=== PATIENT | female | born 1995 | race Caucasian/White ===

== ENCOUNTER 2020-07-15 23:24 | Emergency (ER) | payer OTHER, SELFPAY ==
--- NOTE | 2020-07-16 00:15 | ED.SKABFB ---
HPI - Skin/Abscess/Foreign Bdy General Chief complaint: Skin/Abscess/Foreign Body Stated complaint: VAGINAL PROBLEMS Time Seen by Provider: 07/16/20 00:15 Source: patient Mode of arrival: ambulatory Limitations: no limitations History of Present Illness HPI narrative: blister in the pubic area for 1 day, otherwise declined any fever or chills. patient recently shaved. Related Data Allergies Allergy/AdvReac Type Severity Reaction Status Date / Time No Known Allergies Allergy Verified 07/16/20 00:27 [No Known Allergies*] Review of Systems Review of Systems: all other systems are reviewed and are negative Constitutional: Reports as per HPI and Reports no additional constitutional complaints Eyes: Reports as per HPI and Reports no additional eye complaints Reports system reviewed and no additional complaints, except as documented Cardiovascular: Reports as per HPI and Reports no additional cardiovascular complaints Respiratory: Reports as per HPI and Reports no additional respiratory complaints Gastrointestinal: Reports as per HPI and Reports no additional gastrointestinal complaints Genitourinary: Reports no additional female genitourinary complaints Musculoskeletal: Reports no additional musculoskeletal complaints Skin/Breast: Reports system reviewed and no additional complaints, except as docu Psychiatric: Reports no additional psychiatric complaints Endocrine: Reports no additional endocrine complaints Hematologic/Lymphatic: Reports no additional hematologic/lymphatic complaints Allergic/Immunologic: Reports no additional allergic/immunologic complaints Reports system reviewed and no additional complaints, except as documented and Reports Abnormal speech present [facility] Past Medical History Medical History (Updated 07/16/20 @ 00:35 by Shy Magana MD) No known health problems Social History Social History Alcohol intake: never Smoked in Last 30 Days: No Use of substances other than those prescribed or required for medical reasons: No Physical Exam Vital Signs: Appearance: Alert. Oriented X3. No acute distress. Head: Normal external exam. Normocephalic. Atraumatic. No De Los Santos signs noted. No raccoon eyes noted Eyes: PERRLA. EOMI. Conjunctiva and sclera normal. Eyelids normal. ENT: EAC normal. TM's Normal. Pharynx normal. Uvula midline. Moist mucous membranes. No trismus noted. No drooling noted. No muffled voice noted. Neck: Normal inspection. Neck supple. FROM. No adenopathy. Thyroid Normal. No meningeal signs. No neck mass noted. CVS: Normal heart rate and rhythm. Heart sound normal. No murmurs noted. Pulses normal throughout. Respiratory: No respiratory distress. Painless inspiration. Breath sounds normal. No wheezes/rales/rhonchi noted. Chest nontender. No accessory muscle usage noted or decreased air movement noted. Abdomen: Soft and nontender. small 2 x 1 cm area of fluctuation surrounded by erythematous margin, tender to touch. Bowel sounds normal in all 4 quadrants. No distention noted. No organomegaly noted. No visible injury noted. Back: No CVA tenderness. Full range of motion noted. Skin: Skin warm and dry. Normal skin color. Normal skin turgor. No rashes/lesions/lacerations noted. Extremities: No lower extremity edema. Extremities exhibit normal range of motion. Extremities nontender. Neuro: Oriented X 3. No motor deficit. No sensory deficit. Reflexes normal. Course Course Course Narrative: Lower abdominal abscesses, will I and D. Procedures Abscess I/D Site: other ( Pubic) Local Anesthetic: lidocaine 1% Amount of anesthesia used (mL): 5 Amount of fluid expressed (mL): 5 Sent for culture/gram staining?: No Irrigation: No Packing used?: none MDM - Skin/Abscess/Foreign Bdy MDM Narrative Medical decision making narrative: assessment and plan. 24-year-old female who recently shaved her pubic hair, have an abscess to the pubic area, abscess was I &D. will discharge and follow with PCP. Discharge Plan Discharge Clinical Impression: Abscess of skin or subcutaneous tissue Qualifiers: Site of cutaneous abscess: trunk Patient Disposition: Home, Self-Care Instructions: Abscess (ED) Referrals: Physician,None [Primary Care Provider] - 2 days
[2020-07-16 00:22] VITALS: BP 110/39; PULSE 113; RESP 18; TEMP 37.2; O2SAT 99; BMI 45.7
[2020-07-16] MEDS: Lidocaine HCl 1 % 20 ML VIAL 5 ML SUBCUT (00:36)
[2020-07-16 00:42] VITALS: BP 129/46; PULSE 108; RESP 18; TEMP 36.9; O2SAT 99
== END 2020-07-16 01:15 | disposition home or self-care (01) ==
LOC: HO.ED 07-16 00:54
PROVIDERS: Emergency Provider Emergency Medicine
DX: L02.214 Cutaneous abscess of groin (principal)
CPT/HCPCS: 10060; 99284

== ENCOUNTER 2020-12-04 14:42 | Emergency (ER) | payer OTHER, SELFPAY ==
--- NOTE | ~2020-12-04 | US_ITS ---
EXAMINATION: US ABDOMEN LIMITED CLINICAL INFORMATION: Right upper quadrant pain. COMPARISON: None TECHNIQUE: Real-time imaging of the right upper quadrant abdominal viscera. FINDINGS: PANCREAS: Normal. LIVER: The liver is mildly enlarged, measuring up to 22 cm in cranial caudal dimension. The liver contour is normal. There is diffuse increased liver parenchymal echogenicity, consistent with hepatic steatosis. No focal hepatic lesion. There is no intrahepatic biliary duct dilatation seen. GALLBLADDER: Normal. The gallbladder is physiologically distended without evidence of stones, sludge, polyps, wall thickening or pericholecystic fluid. COMMON BILE DUCT: Mildly enlarged, measuring 0.8 cm in diameter. No intraluminal filling defect or stone is visualized. RIGHT KIDNEY: Normal. No hydronephrosis. No renal calculi or focal parenchymal lesions. The kidney measures 12.80 cm in maximum dimension. FREE FLUID: None. US/US abdomen limited IMPRESSION: Mild hepatomegaly and hepatic steatosis. Normal appearance of the gallbladder. Mildly enlarged common bile duct measuring up to 0.8 cm in diameter. No intraluminal filling defect or stone is visualized.
--- NOTE | 2020-12-04 15:14 | ED.ABDPAIN ---
HPI - Abdominal Pain General Chief Complaint: Abdominal Pain Stated Complaint: abd pain Time Seen by Provider: 12/04/20 15:13 History of Present Illness HPI narrative: Patient complains of nausea vomiting diarrhea and stomach pain for 24 hours, pain is in the upper stomach and it is worse after eating, and she has been vomiting after eating or drinking anything for the last day, and she has also had watery diarrhea, not dizzy not weak no blood in stool or vomitus no dysuria Related Data Previous Rx's Medication Instructions Recorded famotidine [Pepcid] 20 mg PO BID PRN #14 tab 12/04/20 loperamide [Imodium A-D] 2 mg PO Q4H PRN #14 tab 12/04/20 ondansetron HCl [Zofran] 4 mg PO Q6H PRN #10 tab 12/04/20 Allergies Allergy/AdvReac Type Severity Reaction Status Date / Time No Known Allergies Allergy Verified 12/04/20 16:05 [No Known Allergies*] Review of Systems Review of Systems Positive for abdominal pain nausea vomiting and diarrhea Negatives no dizziness no weakness no confusion no fever no chills no headache no sore throat no chest pain no shortness of breath no cough no skin rash no numbness no weakness no changes to bowel or bladder no dysuria no frequency no burning Yes all other systems are reviewed and are negative Physical Exam Vital Signs: Vital Signs: Last Vital Signs Temp 98.3 F 12/04/20 16:06 Pulse 92 12/04/20 16:06 Resp 18 12/04/20 16:06 BP 104/59 L 12/04/20 16:06 Pulse Ox 100 12/04/20 16:06 Body Mass Index 53.0 General appearance is no acute distress cooperative relaxed and O x3 The head is normocephalic atraumatic pupils are anicteric, no pallor The pharynx is well hydrated and normal in appearance The neck is supple The chest is clear to auscultation bilaterally full symmetric equal breath sounds The heart rate and rhythm regular, no murmur abdomen is tender in right upper quadrant and worse in the epigastric area with no rebound no guarding no other tenderness no tenderness in the right lower abdomen Extremities full range of motion x4 without edema or swelling Skin no rash Neuro no focal deficit Course Course Course Narrative: Patient test with negative Ultrasound did not show any acute cholelithiasis or gallstone LFTs were mildly elevated it ALT ALP total protein and albumin, bilirubin and lipase were normal Repeat abdominal exam showed only some residual epigastric tenderness without rebound or guarding no right upper quadrant tenderness no rebound no guarding, patient was now tolerating p.o. after the Zofran and pain was improved with the Pepcid and patient was discharged feeling very improved Differential includes gallstones, cholelithiasis, reflux, gastroenteritis, appendicitis MDM - Abdominal Pain Lab Data Result diagrams: 12/04/20 16:17 12/04/20 18:39 Labs: Lab Results 12/04/20 12/04/20 12/04/20 Range/Units 16:17 16:17 16:17 WBC 11.3 H (4.8-10.8) X10*3/uL RBC 5.27 (4.20-5.50) X10*6/uL Hgb 13.5 (12.0-16.0) g/dl Hct 43.5 (37-47) % MCV 82.5 (80-98) fL MCH 25.6 L (27.0-33.0) pg MCHC 31.0 (31.0-35.0) g/dl RDW 14.3 (11.0-16.0) % Plt Count 318 (160-400) X10*3/uL MPV 10.0 (9.4-12.3) fL Immature Gran % (Auto) 0.5 H (0.0-0.4) % Neut % (Auto) 65.7 (45-73) % Lymph % (Auto) 24.8 (20-40) % Tyrrell % (Auto) 6.4 (2-11) % Eos % (Auto) 2.4 (0-4) % Baso % (Auto) 0.2 (0-2) % Lymph # (Auto) 2.8 (1.2-4.9) X10*3/uL Tyrrell # (Auto) 0.7 (0.1-1.2) X10*3/uL Eos # (Auto) 0.3 (0.0-0.4) X10*3/uL Baso # (Auto) 0.0 (0.0-0.2) X10*3/uL Abs Immat Gran (auto) 0.06 H (0.00-0.03) X10*3/uL Absolute Neuts (auto) 7.5 (2.0-8.3) X10*3/uL Absolute Nucleated RBC 0.000 (0.0-0.012) X10*3/uL Nucleated RBC % (auto) 0.0 (0.0-0.2) /100WBC Sodium (135-145) mmol/L Potassium (3.3-5.1) mmol/L Chloride (96-108) mmol/L Carbon Dioxide (22-29) mmol/L Anion Gap (12-20) BUN (9-16) mg/dL Creatinine (0.5-1.4) mg/dL Estim Creat Clear Calc Estimated GFR Random Glucose (60-115) mg/dL Calcium (8.4-10.2) mg/dL Total Bilirubin (0.0-1.0) mg/dL Direct Bilirubin (0.0-0.5) mg/dL AST (5-31) U/L ALT (0-31) U/L Alkaline Phosphatase (39-117) U/L Total Protein (6.5-8.0) g/dL Albumin (3.5-5.0) g/dL Lipase (8-78) U/L Urine Color YELLOW Urine Appearance CLEAR Urine pH 5.5 (5.0-8.0) Ur Specific Franklin >= 1.030 H (1.005-1.025) Urine Protein NEG (NEG-TRACE) MG/DL Urine Glucose (UA) NEG (NEG) MG/DL Urine Ketones NEG (NEG) MG/DL Urine Blood 2+ H (NEG) Urine Nitrite NEG (NEG) Ur Leukocyte Esterase NEG (NEG) Urine RBC 5-9 H (0) /HPF Urine WBC 5-9 H (0-4) /HPF Ur Squamous Epith Cells 2+ /LPF Urine Bacteria 1+ /LPF Urine Test NEGATIVE (NEGATIVE) 12/04/20 Range/Units 18:39 WBC (4.8-10.8) X10*3/uL RBC (4.20-5.50) X10*6/uL Hgb (12.0-16.0) g/dl Hct (37-47) % MCV (80-98) fL MCH (27.0-33.0) pg MCHC (31.0-35.0) g/dl RDW (11.0-16.0) % Plt Count (160-400) X10*3/uL MPV (9.4-12.3) fL Immature Gran % (Auto) (0.0-0.4) % Neut % (Auto) (45-73) % Lymph % (Auto) (20-40) % Tyrrell % (Auto) (2-11) % Eos % (Auto) (0-4) % Baso % (Auto) (0-2) % Lymph # (Auto) (1.2-4.9) X10*3/uL Tyrrell # (Auto) (0.1-1.2) X10*3/uL Eos # (Auto) (0.0-0.4) X10*3/uL Baso # (Auto) (0.0-0.2) X10*3/uL Abs Immat Gran (auto) (0.00-0.03) X10*3/uL Absolute Neuts (auto) (2.0-8.3) X10*3/uL Absolute Nucleated RBC (0.0-0.012) X10*3/uL Nucleated RBC % (auto) (0.0-0.2) /100WBC Sodium 139 (135-145) mmol/L Potassium 4.0 (3.3-5.1) mmol/L Chloride 106 (96-108) mmol/L Carbon Dioxide 21 L (22-29) mmol/L Anion Gap 16 (12-20) BUN 10 (9-16) mg/dL Creatinine 0.67 (0.5-1.4) mg/dL Estim Creat Clear Calc 171.9 Estimated GFR > 60 Random Glucose 74 (60-115) mg/dL Calcium 9.9 (8.4-10.2) mg/dL Total Bilirubin 0.9 (0.0-1.0) mg/dL Direct Bilirubin 0.3 (0.0-0.5) mg/dL AST 25 (5-31) U/L ALT 40 H (0-31) U/L Alkaline Phosphatase 124 H (39-117) U/L Total Protein 9.1 H (6.5-8.0) g/dL Albumin 5.1 H (3.5-5.0) g/dL Lipase 15 (8-78) U/L Urine Color Urine Appearance Urine pH (5.0-8.0) Ur Specific Franklin (1.005-1.025) Urine Protein (NEG-TRACE) MG/DL Urine Glucose (UA) (NEG) MG/DL Urine Ketones (NEG) MG/DL Urine Blood (NEG) Urine Nitrite (NEG) Ur Leukocyte Esterase (NEG) Urine RBC (0) /HPF Urine WBC (0-4) /HPF Ur Squamous Epith Cells /LPF Urine Bacteria /LPF Urine Test (NEGATIVE) Discharge Plan Discharge Clinical Impression: Gastroenteritis, Elevated liver function tests Patient Disposition: Home, Self-Care Additional Instructions: We did not find any emergent or dangerous condition today Your liver function tests were mildly elevated so should be repeated after a couple of weeks and you should follow with primary care doctor for repeat liver function tests We are treating vomiting with Zofran and diarrhea with Imodium, drink plenty of fluids We started Pepcid as needed for burning stomach pain you can also take Maalox, they are both acid reducing agents Return anything for change or worsening abdominal pain, fever, uncontrolled vomiting, dehydration dizziness weakness any worse condition or any concerns Prescriptions: New ondansetron HCl [Zofran] 4 mg tablet 4 mg PO Q6H PRN (Reason: nausea and vomiting) Qty: 10 RF: 0 famotidine [Pepcid] 20 mg tablet 20 mg PO BID PRN (Reason: Stomach acid pain) Qty: 14 RF: 0 loperamide [Imodium A-D] 2 mg tablet 2 mg PO Q4H PRN (Reason: loose stool) Qty: 14 RF: 0 Stand Alone Forms: Work/School Release Interventions: ED Discharge Assessment Last Done: 12/04/20 20:36 Discharge Date/Time: 12/04/20 20:38 [facility] Past Medical History Source: nursing notes reviewed Medical History (Updated 12/05/20 @ 00:00 by Background Dadeborah) No known health problems Obese Social History Social History Alcohol intake: never Smoking Status: Never smoker Use of substances other than those prescribed or required for medical reasons: No Advance Directives: No Advance Directives Information Provided: Yes
[2020-12-04 16:06] VITALS: BP 104/59; PULSE 92; RESP 18; TEMP 36.8; O2SAT 100; BMI 53.0
[2020-12-04] MEDS: ondansetron HCL 4 MG/2 ML VIAL IVPUSH (16:27)
[2020-12-04] MEDS: 0.9 % Sodium Chloride 1,000 ML 999 ML IVCONT (16:27)
[2020-12-04 16:28] LABS: MANUAL DIFF FLAG NO
[2020-12-04 16:32] LABS: Basophils Percent Auto 0.2 % (0-2); Eosinophils Absolute Auto 0.3 X10*3/uL (0.0-0.4); Eosinophils Percent Auto 2.4 % (0-4); Hematocrit 43.5 % (37-47); Hemoglobin 13.5 g/dl (12.0-16.0); Imm Gran Abs Auto 0.06 X10*3/uL (0.00-0.03); Imm Gran Pct Auto 0.5 % (0.0-0.4); Lymphocytes Absolute Auto 2.8 X10*3/uL (1.2-4.9); Lymphocytes Percent Auto 24.8 % (20-40); Mean Corpuscular Hemoglobin 25.6 pg (27.0-33.0); Mean Corpuscular Volume 82.5 fL (80-98); Monocytes Absolute Auto 0.7 X10*3/uL (0.1-1.2); Monocytes Percent Auto 6.4 % (2-11); Neutrophils Absolute Auto 7.5 X10*3/uL (2.0-8.3); Neutrophils Percent Auto 65.7 % (45-73); Platelet Count 318 X10*3/uL (160-400); Red Blood Count 5.27 X10*6/uL (4.20-5.50); Red Cell Distribution Width 14.3 % (11.0-16.0); White Blood Count 11.3 X10*3/uL (4.8-10.8)
[2020-12-04 16:41] LABS: Glucose Urine UA NEG (NEG); Leukocyte Esterase Urine NEG (NEG); Nitrite Urine NEG (NEG); PH 5.5 (5.0-8.0); Specific Gravity - Urine >= 1.030 (1.005-1.025); Urine Blood 2+ (NEG); Urine Ketones NEG (NEG); Urine Protein NEG (NEG-TRACE)
[2020-12-04 16:45] LABS: Appearance Urine CLEAR; Color Urine YELLOW
[2020-12-04 16:47] LABS: UPreg QC Valid YES; Urine Pregnancy NEGATIVE (NEGATIVE)
[2020-12-04 17:18] LABS: UACC CULT YES
[2020-12-04 17:19] LABS: Bacteria Urine 1+ /LPF; Squamous Epithelial Cell Urine 2+ /LPF
[2020-12-04 19:39] LABS: Alanine Aminotransferase 40 U/L (0-31); Albumin Level 5.1 g/dL (3.5-5.0); Alkaline Phosphatase 124 U/L (39-117); Anion Gap 16 (12-20); Aspartate Amino Transferase 25 U/L (5-31); Bilirubin Direct 0.3 mg/dL (0.0-0.5); Bilirubin Total 0.9 mg/dL (0.0-1.0); Blood Urea Nitrogen 10 mg/dL (9-16); Calcium 9.9 mg/dL (8.4-10.2); Carbon Dioxide 21 mmol/L (22-29); Chloride 106 mmol/L (96-108); Creatinine Clr Calc Pharmacy 171.9; Estimated Glomerular Filt Rate > 60; Glucose Random 74 mg/dL (60-115); Lipase 15 U/L (8-78); Sodium 139 mmol/L (135-145); Total Protein 9.1 g/dL (6.5-8.0)
== END 2020-12-04 20:38 | disposition home or self-care (01) ==
PROVIDERS: Physician Assistant Medical; Emergency Provider Internal Medicine
DX: K52.9 Noninfective gastroenteritis and colitis, unspecified (principal); R79.89 Other specified abnormal findings of blood chemistry
CPT/HCPCS: 36415; 76705; 80048; 80076; 81001; 81025; 83690; 85025; 87086; 96361; 96374; 99284; J2405

== ENCOUNTER 2021-02-20 14:54 | Emergency (ER) | payer OTHER, SELFPAY ==
[2021-02-20 15:43] VITALS: BP 110/59; PULSE 89; RESP 18; TEMP 36.8; O2SAT 99; BMI 42.1
--- NOTE | 2021-02-20 16:33 | ED.EXTPRO ---
HPI - Extremity Problem General Chief complaint: Extremity Injury, Upper Stated complaint: L ARM PAIN Time Seen by Provider: 02/20/21 16:15 Source: patient Mode of arrival: ambulatory Limitations: no limitations History of Present Illness MD Complaint: extremity pain and joint paint Onset (ago): day(s) (2) Pain Consistency: constant Location: left and upper extremity (wrist) Quality: aching and constant Radiation: proximal Relieving factors: nothing Exacerbating factors: range of motion and palpation Associated symptoms: denies other symptoms Context: other (repeated movements at work and heavy lifting, no trauma) Related Data Previous Rx's Medication Instructions Recorded famotidine [Pepcid] 20 mg PO BID PRN #14 tab 12/04/20 loperamide [Imodium A-D] 2 mg PO Q4H PRN #14 tab 12/04/20 ondansetron HCl [Zofran] 4 mg PO Q6H PRN #10 tab 12/04/20 cyclobenzaprine 10 mg PO TID PRN #14 tab 02/20/21 ibuprofen 600 mg PO Q6H PRN #30 tab 02/20/21 prednisone 40 mg PO DAILY 5 Days #10 tab 02/20/21 Allergies Allergy/AdvReac Type Severity Reaction Status Date / Time No Known Allergies Allergy Verified 02/20/21 15:43 [No Known Allergies*] Review of Systems Review of Systems: Constitutional : No Fever, No Chills ENT/Mouth : No Ear Pain, No Hoarseness Eyes: No Eye Pain, No Swelling Cardiovascular : No Chest Pain, No SOB Respiratory : No Cough, No Dyspnea Gastrointestinal : No Nausea, No Vomiting, No Diarrhea Genitourinary : No Dysuria, No Hematuria Musculoskeletal : positive joint pain, No Myalgias, No Joint Swelling Skin : No Skin lacerations, No rash Neuro : No Weakness, No Numbness PMFSH Past Medical History Attestation statement: The following information was validated with the patient. Medical History No known health problems Obese Social History Social History Alcohol intake: never Advance Directives: No Advance Directives Information Provided: No Patient : No Physical Exam Vital Signs: Vital Signs: Last Vital Signs Temp 98.2 F 02/20/21 15:43 Pulse 89 02/20/21 15:43 Resp 18 02/20/21 15:43 BP 110/59 L 02/20/21 15:43 Pulse Ox 99 02/20/21 15:43 Body Mass Index 42.1 Appearance: Alert. Oriented X3. No acute distress. Eyes: Pupils equal, round and reactive to light. ENT: Pharynx normal. Neck: Normal inspection. Neck supple. CVS: Normal heart rate and rhythm. Pulses normal. Respiratory: No respiratory distress. Breath sounds normal. Abdomen: Soft and nontender. Skin: Skin warm and dry. Normal skin color. Normal skin turgor. Extremities: No lower extremity edema. No calf ttp L wrist NV intact + phalen's pos tinels test - slight swelling noted over carpal tunnel Neuro: Oriented X 3. No motor deficit. No sensory deficit. Procedures Orthopedic Splinting/Casting Injury #1: Side: left Upper Extremity Injury Location: wrist Upper Extremity Immobilizer: wrist splint Additional Comments: post NV intact MDM - Extremity (Nontraumatic) MDM Narrative Medical decision making narrative: 25 yo female otherwise healthy here with L wrist pain for 2 days has repetitive movements at work - exam NV intact, no trauma, suspect carpal tunnel at this time, anti inflammatories and wrist splint, light duty at work, follow up with PCP Discharge Plan Discharge Clinical Impression: Acute carpal tunnel syndrome Qualifiers: Laterality: left Qualified Code(s): G56.02 - Carpal tunnel syndrome, left upper limb Patient Disposition: Home, Self-Care Instructions: Wrist Injury (ED) Additional Instructions: return to ED for any worsening symptoms or concerns wear splint x 1 week for comfort, wear at night as well TAKE MEDICATIONS WITH FOOD Prescriptions: New cyclobenzaprine 10 mg tablet 10 mg PO TID PRN (Reason: muscle spasm) Qty: 14 RF: 0 prednisone 20 mg tablet 40 mg PO DAILY 5 Days Qty: 10 RF: 0 ibuprofen 600 mg tablet 600 mg PO Q6H PRN (Reason: pain) Qty: 30 RF: 0 No Action ondansetron HCl [Zofran] 4 mg tablet 4 mg PO Q6H PRN (Reason: nausea and vomiting) Qty: 10 RF: 0 famotidine [Pepcid] 20 mg tablet 20 mg PO BID PRN (Reason: Stomach acid pain) Qty: 14 RF: 0 loperamide [Imodium A-D] 2 mg tablet 2 mg PO Q4H PRN (Reason: loose stool) Qty: 14 RF: 0 Referrals: Physician,Unknown [Primary Care Provider] - 5 days (PCP if not better in 5 days) Stand Alone Forms: Work/School Release
[2021-02-20] MEDS: Ketorolac Tromethamine 60 MG/2 ML VIAL IM (17:07)
== END 2021-02-20 17:08 | disposition home or self-care (01) ==
PROVIDERS: Emergency Provider Emergency Medicine
DX: G56.02 Carpal tunnel syndrome, left upper limb (principal)
CPT/HCPCS: 96372; 99283; 99284; J1885

== ENCOUNTER 2021-05-19 01:15 | Emergency (ER) | payer OTHER, SELFPAY ==
--- NOTE | ~2021-05-19 | XR_ITS ---
EXAMINATION: XR HAND, RIGHT CLINICAL INFORMATION: Fall COMPARISON: None TECHNIQUE: PA, lateral, and oblique views of the right hand. FINDINGS: Osseous alignment is anatomic. There is suggestion of a nondisplaced oblique fracture at the neck of the fifth metacarpal. No additional acute osseous findings are seen. XR/XR hand RT min 3V IMPRESSION: Suggestion of a nondisplaced fracture at the neck of the fifth metacarpal; clinical correlation recommended at this site.
[2021-05-19 01:56] VITALS: BP 138/60; PULSE 92; RESP 16; TEMP 36.7; O2SAT 99; BMI 43.9
--- NOTE | 2021-05-19 02:39 | ED.EXTPRO ---
HPI - Extremity Problem General Chief complaint: Extremity Injury, Upper Stated complaint: swollen right hand Time Seen by Provider: 05/19/21 02:38 Source: patient Mode of arrival: ambulatory History of Present Illness HPI Narrative: This is a 25-year-old female, left-hand dominant, who presents with right hand swelling after she tripped going up stairs and caught herself with her right hand and initially did not notice that she had any pain but then progressively it became more painful over the pinky finger. Related Data Previous Rx's Medication Instructions Recorded famotidine 20 mg tablet (Pepcid) 20 mg PO BID PRN #14 tab 12/04/20 loperamide 2 mg tablet (Imodium 2 mg PO Q4H PRN #14 tab 12/04/20 A-D) ondansetron HCl 4 mg tablet 4 mg PO Q6H PRN #10 tab 12/04/20 (Zofran) cyclobenzaprine 10 mg tablet 10 mg PO TID PRN #14 tab 02/20/21 ibuprofen 600 mg tablet 600 mg PO Q6H PRN #30 tab 02/20/21 prednisone 20 mg tablet 40 mg PO DAILY 5 Days #10 tab 02/20/21 Allergies Allergy/AdvReac Type Severity Reaction Status Date / Time No Known Allergies Allergy Verified 02/20/21 15:43 [No Known Allergies*] Review of Systems Review of Systems: Pertinent positives and negatives as stated in HPI 10 point review of systems is otherwise negative. PMFSH Past Medical History Source: nursing notes reviewed Medical History No known health problems Obese Social History Social History Alcohol intake: never Patient Tobacco Use Status: Never used Tobacco Use of substances other than those prescribed or required for medical reasons: No Advance Directives: No Advance Directives Information Provided: No Physical Exam Vital Signs: Vital Signs: Last Vital Signs Temp 98.1 F 05/19/21 01:56 Pulse 92 05/19/21 01:56 Resp 16 05/19/21 01:56 BP 138/60 05/19/21 01:56 Pulse Ox 99 05/19/21 01:56 Body Mass Index 43.9 VITAL SIGNS: Reviewed. GENERAL: Well developed, well nourished, in no acute distress. HEAD: Normocephalic/atraumatic EYES: PERRLA, EOMI LUNGS: Normal breath sounds. SpO2<99> CARDIOVASCULAR: Regular rate and rhythm without noted murmurs ABDOMEN: Soft, non-tender, non-distended with bowel sounds RIGHT HAND: Noted swelling over 5th MCP, capillary refill is less than 3 seconds, sensation is intact, hand is warm NEUROLOGIC: Alert and oriented x 4. Course Course Course Narrative: 25-year-old female with history and clinical presentation suggestive of possible dislocation versus fracture and on review of imaging there is a noted ?nondisplaced fracture at the neck of the 5th metacarpal . Patient was placed in an ulnar gutter and given a referral to see Orthopedics. Discharge Plan Discharge Clinical Impression: Fracture of fifth metacarpal bone Patient Disposition: Home, Self-Care Instructions: Hand Fracture (ED), Splint Care (ED) Additional Instructions: 1. Recommend using [id number] Tylenol/ibuprofen as needed for pain control. 2. Please call the orthopedic office in the morning, the referral was provided to below. Return to the ER for acute worsening of symptoms. Prescriptions: No Action cyclobenzaprine 10 mg tablet 10 mg PO TID PRN (Reason: muscle spasm) Qty: 14 RF: 0 prednisone 20 mg tablet 40 mg PO DAILY 5 Days Qty: 10 RF: 0 ibuprofen 600 mg tablet 600 mg PO Q6H PRN (Reason: pain) Qty: 30 RF: 0 ondansetron HCl [Zofran] 4 mg tablet 4 mg PO Q6H PRN (Reason: nausea and vomiting) Qty: 10 RF: 0 famotidine [Pepcid] 20 mg tablet 20 mg PO BID PRN (Reason: Stomach acid pain) Qty: 14 RF: 0 loperamide [Imodium A-D] 2 mg tablet 2 mg PO Q4H PRN (Reason: loose stool) Qty: 14 RF: 0 Referrals: Jovanna Everett MD [Physician] - 2 days (Evaluation of 25-year-old female, left-hand dominant, with mechanical fall and subsequent nondisplaced fracture at the neck of the right 5th metacarpal and placed in an ulnar gutter.)
== END 2021-05-19 03:28 | disposition home or self-care (01) ==
PROVIDERS: Emergency Provider Student in an Organized Health Care Education/Training Program
DX: S62.366A Nondisplaced fracture of neck of fifth metacarpal bone, right hand, initial encounter for closed fracture (principal); W17.89XA Other fall from one level to another, initial encounter; Y93.89 Activity, other specified; Y92.038 Other place in apartment as the place of occurrence of the external cause; Y99.9 Unspecified external cause status
CPT/HCPCS: 29125; 73130; 99284

== ENCOUNTER → 2021-05-24 14:10 | Outpatient (BNVA) | payer OTHER, SELFPAY | PROVIDERS: Visit Provider Physician Assistant | DX: S62.366A Nondisplaced fracture of neck of fifth metacarpal bone, right hand, initial encounter for closed fracture (principal); W01.0XXA Fall on same level from slipping, tripping and stumbling without subsequent striking against object, initial encounter; Y93.01 Activity, walking, marching and hiking; Y92.038 Other place in apartment as the place of occurrence of the external cause; Y99.8 Other external cause status | CPT/HCPCS: 99202 ==

== ENCOUNTER 2021-06-21 13:03 | Outpatient (REF) | payer OTHER, SELFPAY ==
--- NOTE | ~2021-06-21 | XR_ITS ---
EXAMINATION: XR HAND, RIGHT CLINICAL INFORMATION: Pain right hand COMPARISON: None TECHNIQUE: PA, lateral, and oblique views of the right hand. FINDINGS: There is a nondisplaced oblique fracture distal fifth metacarpal without any significant soft tissue swelling. Rest of the fifth digit and the right hand appears unremarkable. XR/XR hand RT min 3V IMPRESSION: Nondisplaced oblique fracture distal fifth metatarsal with minimal soft tissue swelling.
== END 2021-06-21 13:04 | disposition home or self-care (01) ==
LOC: HO.HOSX 13:03
PROVIDERS: Visit Provider Physician Assistant
DX: S62.336D Displaced fracture of neck of fifth metacarpal bone, right hand, subsequent encounter for fracture with routine healing (principal)
CPT/HCPCS: 73130; 99212

== ENCOUNTER 2021-07-19 07:20 | Outpatient (REF) | payer OTHER, SELFPAY ==
--- NOTE | ~2021-07-19 | XR_ITS ---
EXAMINATION: XR HAND, RIGHT CLINICAL INFORMATION: Subtle nondisplaced hairline fracture neck fifth metacarpal. Pain. Follow-up. COMPARISON: Radiographs right knee 06/21/2021, 05/19/2021 TECHNIQUE: AP view right hand and 3 views right fifth digit are obtained for a total of 4 views. FINDINGS: There is subtle smooth callus formation at medial neck fifth metacarpal on the AP small field of view image. There is no angulation or displacement. Fracture line is barely perceptible. There is no new fracture or destructive process. No dislocation. XR/XR hand RT min 3V IMPRESSION: Healing nondisplaced hairline fracture neck fifth metacarpal.
== END 2021-07-19 07:21 | disposition home or self-care (01) ==
LOC: HO.HOSX 07:20
PROVIDERS: Visit Provider Physician Assistant
DX: S62.308D Unspecified fracture of other metacarpal bone, subsequent encounter for fracture with routine healing (principal)
CPT/HCPCS: 73130; 99212

== ENCOUNTER 2021-10-04 11:14 | Emergency (ER) | payer OTHER, SELFPAY ==
[2021-10-04 11:22] VITALS: BP 113/60; PULSE 114; RESP 19; TEMP 36.6; O2SAT 99; BMI 45.7
[2021-10-04 13:26] LABS: Basophils Percent Auto 0.2 % (0-2); Eosinophils Percent Auto 0.1 % (0-4); Hematocrit 44.8 % (37.0-47.0); Hemoglobin 14.3 g/dl (12.0-16.0); Imm Gran Abs Auto 0.11 X10*3/uL (0.00-0.03); Imm Gran Pct Auto 0.7 % (0.0-0.4); Lymphocytes Absolute Auto 0.7 X10*3/uL (1.2-4.9); Lymphocytes Percent Auto 4.4 % (20-40); MANUAL DIFF FLAG SCAN; Mean Corpuscular HGB Conc 31.9 g/dl (31.0-35.0); Mean Corpuscular Volume 81.5 fL (80.0-98.0); Mean Platelet Volume 9.1 fL (9.4-12.3); Monocytes Absolute Auto 0.5 X10*3/uL (0.1-1.2); Monocytes Percent Auto 2.9 % (2-11); Neutrophils Absolute Auto 14.7 x10*3/uL (2.0-8.3); Neutrophils Percent Auto 91.7 % (45-73); Platelet Count 340 X10*3/uL (160-400); Red Cell Distribution Width 14.9 % (11.0-16.0); SCAN SMEAR FLAG 1; White Blood Count 16.1 X10*3/uL (4.8-10.8)
[2021-10-04 13:39] LABS: UPreg QC Valid YES; Urine Pregnancy NEGATIVE (NEGATIVE)
[2021-10-04 13:41] LABS: Appearance Urine CLEAR; Color Urine YELLOW; Glucose Urine UA NEG (NEG); Leukocyte Esterase Urine NEG (NEG); Nitrite Urine NEG (NEG); PH 5.5 (5.0-8.0); Specific Gravity - Urine >= 1.030 (1.005-1.025); UACC Culture Trigger NO; Urine Blood 1+ (NEG); Urine Ketones NEG (NEG); Urine Protein NEG (NEG-TRACE)
[2021-10-04 13:46] LABS: Mucus Urine 2+ /LPF; Squamous Epithelial Cell Urine 2+ /LPF; WBC Urine 0-2 /HPF (0-4)
[2021-10-04 13:46] LABS: Anion Gap 15 (12-20); Blood Urea Nitrogen 13 mg/dL (9-16); Calcium 9.8 mg/dL (8.4-10.2); Carbon Dioxide 21 mmol/L (22-29); Chloride 109 mmol/L (96-108); Creatinine Clr Calc Pharmacy 146.7; Estimated Glomerular Filt Rate > 60; Glucose Random 121 mg/dL (60-115); Sodium 141 mmol/L (135-145)
[2021-10-04 13:49] LABS: COVID-19 Test Negative (Negative)
[2021-10-04 13:50] LABS: SLIDE REVIEW VERIFIED
[2021-10-04 20:58] VITALS: BP 137/70; PULSE 137; RESP 30; TEMP 38; O2SAT 100
[2021-10-04 23:22] VITALS: BP 118/70; PULSE 119; RESP 15; TEMP 35.8; O2SAT 99
[2021-10-04] MEDS: Ondansetron ODT 4 MG TAB.RAPDIS TRANSLINGU (23:25)
== END 2021-10-05 00:45 | disposition left against medical advice (07) ==
PROVIDERS: Emergency Provider Emergency Medicine
DX: R10.9 Unspecified abdominal pain (principal); R19.7 Diarrhea, unspecified; K21.9 Gastro-esophageal reflux disease without esophagitis; Z20.822 Contact with and (suspected) exposure to COVID-19
CPT/HCPCS: 80048; 81001; 81025; 85025; 87635; 99283

== ENCOUNTER → 2021-12-05 11:59 | Outpatient (BNVA) | payer OTHER, SELFPAY | PROVIDERS: Visit Provider Physician Assistant | DX: E66.01 Morbid (severe) obesity due to excess calories (principal); Z68.43 Body mass index [BMI] 50.0-59.9, adult | CPT/HCPCS: 99202 ==

== ENCOUNTER 2021-12-12 08:30 | Outpatient (REF) | payer OTHER, SELFPAY ==
--- NOTE | ~2021-12-12 | XR_ITS ---
EXAMINATION: XR CHEST CLINICAL INFORMATION: Moderate/severe obesity due to excess calories. COMPARISON: None TECHNIQUE: 2 views of the chest were obtained. FINDINGS: No significant abnormality is noted involving the heart, lungs, mediastinum, bony thorax or soft tissues. XR/XR chest 2V IMPRESSION: Unremarkable chest examination.
--- NOTE | 2021-12-12 08:39 | ECG_ITS ---
Test Reason : E66.01 Blood Pressure : / mmHG Vent. Rate : 089 BPM Atrial Rate : 089 BPM P-R Int : 154 ms QRS Dur : 086 ms QT Int : 352 ms P-R-T Axes : 071 008 015 degrees QTc Int : 428 ms Normal sinus rhythm Normal ECG No previous ECGs available Referred By: Anisha Maya Electronically Signed By:Kenneth Medina
[2021-12-12 09:22] LABS: MANUAL DIFF FLAG NO
[2021-12-12 09:32] LABS: Basophils Absolute Auto 0.1 X10*3/uL (0.0-0.2); Basophils Percent Auto 0.5 % (0-2); Eosinophils Absolute Auto 0.1 X10*3/uL (0.0-0.4); Eosinophils Percent Auto 1.3 % (0-4); Hematocrit 40.7 % (37.0-47.0); Hemoglobin 12.6 g/dl (12.0-16.0); Imm Gran Abs Auto 0.06 X10*3/uL (0.00-0.03); Imm Gran Pct Auto 0.6 % (0.0-0.4); Lymphocytes Absolute Auto 2.4 X10*3/uL (1.2-4.9); Lymphocytes Percent Auto 24.7 % (20-40); Mean Corpuscular Hemoglobin 25.4 pg (27.0-33.0); Mean Corpuscular Volume 81.9 fL (80.0-98.0); Mean Platelet Volume 9.5 fL (9.4-12.3); Monocytes Absolute Auto 0.6 X10*3/uL (0.1-1.2); Monocytes Percent Auto 5.6 % (2-11); Neutrophils Absolute Auto 6.6 x10*3/uL (2.0-8.3); Neutrophils Percent Auto 67.3 % (45-73); Platelet Count 336 X10*3/uL (160-400); Red Blood Count 4.97 X10*6/uL (4.20-5.50); Red Cell Distribution Width 15.1 % (11.0-16.0); White Blood Count 9.8 X10*3/uL (4.8-10.8)
[2021-12-12 09:51] LABS: Estimated Average Glucose 108 mg/dL; Hemoglobin A1c % 5.4 %; Total Hemoglobin (HGBA1C) 3349.0898 umol/L
[2021-12-12 10:06] LABS: Alanine Aminotransferase 23 U/L (0-31); Albumin Level 4.1 g/dL (3.5-5.0); Alkaline Phosphatase 98 U/L (39-117); Anion Gap 13 (12-20); Aspartate Amino Transferase 18 U/L (5-31); Bilirubin Total 0.6 mg/dL (0.0-1.0); Blood Urea Nitrogen 10 mg/dL (9-16); C Reactive Protein 2.67 mg/dL (< or = 0.50); Calcium 9.5 mg/dL (8.4-10.2); Carbon Dioxide 22 mmol/L (22-29); Chloride 108 mmol/L (96-108); Cholesterol 142 mg/dL; Estimated Glomerular Filt Rate > 60; Glucose Random 96 mg/dL (60-115); HDL Cholesterol 29 mg/dL; Iron 50 mcg/dL (30-160); LDL Cholesterol Calculated 100 mg/dl; Percent Iron Saturation 16 % (15-50); Sodium 139 mmol/L (135-145); Total Iron Binding Capacity 321 mcg/dL (228-428); Total Protein 7.1 g/dL (6.5-8.0); Triglycerides 66 mg/dL; Unsaturated Iron Binding 271 ug/dL
[2021-12-12 10:21] LABS: Insulin 31 uU/mL (2-29); TSH reflex Free T4 1.26 uIU/mL (0.32-4.0)
[2021-12-12 10:37] LABS: Folate 15.2 ng/mL (> or = 4.0); Vitamin B12 519 pg/mL (200-900)
[2021-12-12 11:17] LABS: Ferritin 86 ng/mL (10-122)
[2021-12-13 11:29] LABS: H Pylori Breath Test Negative (Negative)
[2021-12-13 16:01] LABS: Calcium (PTHI) 9.6 mg/dL (8.6-10.2); PTHI 71 pg/mL (16-77)
[2021-12-14 14:12] LABS: Vitamin D 25-OH Total 12.4 ng/mL (>30)
[2021-12-15 16:35] LABS: Zinc 89 mcg/dL (60-130)
[2021-12-16 17:21] LABS: Vitamin B1 <6 nmol/L (8-30)
[2021-12-18 16:41] LABS: Vitamin A 30 mcg/dL (38-98)
== END 2021-12-12 08:31 | disposition home or self-care (01) ==
LOC: HO.LAB 08:30
PROVIDERS: PCP Physician Assistant Medical; Visit Provider Physician Assistant
DX: E66.01 Morbid (severe) obesity due to excess calories (principal)
CPT/HCPCS: 36415; 71046; 80053; 80061; 82306; 82607; 82728; 82746; 83013; 83036; 83525; 83540; 83970; 84425; 84443; 84590; 84630; 85025; 86140; 90791; 93005; 99211

== ENCOUNTER → 2022-01-02 08:15 | Outpatient (BNVA) | payer OTHER, SELFPAY | PROVIDERS: Visit Provider Dietitian, Registered | DX: E66.01 Morbid (severe) obesity due to excess calories (principal); Z71.3 Dietary counseling and surveillance | CPT/HCPCS: 97802 ==

== ENCOUNTER 2022-01-17 08:55 | Outpatient (REF) | payer OTHER, SELFPAY ==
--- NOTE | ~2022-01-17 | US_ITS ---
EXAMINATION: US COMPLETE ABDOMEN WITH LIVER ELASTOGRAPHY CLINICAL INFORMATION: [id number] obesity. COMPARISON: Ultrasound abdomen 12/04/2020. TECHNIQUE: Real-time imaging of the abdominal viscera. Noninvasive ultrasound liver fibrosis assessment is performed using Juancarlos ElastPQ point quantification shear wave elastography (2D-SWE) with a C5-2 MHz transducer. Multiple elastography samples are obtained. FINDINGS: PANCREAS: The visualized pancreatic head and body are normal in appearance. The tail of the pancreas is obscured from visualization by the overlying bowel gas. ABDOMINAL AORTA: The proximal, middle, and distal aortic segments are normal in caliber. INFERIOR VENA CAVA: Visualized portions are normal. LIVER: The liver demonstrates normal size, contour and increased echogenicity. No focal lesion or intrahepatic biliary duct dilatation. The right lobe measures 17.7 cm in length. The left lobe measures 12.4 cm in length. Portal flow is hepatopedal. Shear wave liver elastography median stiffness is 1.58 m/s (reference: normal median stiffness is 1.3 m/s or less). IQR/median stiffness to assess sampling precision is 0.13 (reference: good quality data set is IQR/median stiffness of 0.15 or less). GALLBLADDER: Gallbladder wall thickness is 0.2 cm. The gallbladder is physiologically distended without evidence of stones, sludge, polyps, wall thickening or pericholecystic fluid. COMMON BILE DUCT: Normal in caliber measuring 0.2 cm in diameter. RIGHT KIDNEY: Normal. No hydronephrosis. No renal calculi or focal parenchymal lesions. The kidney measures 12.2 cm in maximum dimension. LEFT KIDNEY: Normal. No hydronephrosis. No renal calculi or focal parenchymal lesions. The kidney measures 11.3 cm in maximum dimension. SPLEEN: Normal. The spleen measures 10.4 cm in maximum dimension. FREE FLUID: None. US/US abdomen comp w elastography IMPRESSION: 1. Mild hepatic steatosis without focal lesion. No intrahepatic ductal dilatation. The rest of the abdominal ultrasound is unremarkable. 2. Liver elastography: Median liver stiffness 1.58 m/s suggestive of cACLD ruled out. REFERENCE: Society of Radiologists in Ultrasound Liver Stiffness Thresholds (2020): LIVER STIFFNESS THRESHOLDS: *Liver Stiffness equal or less than 1.3 m/s: High probability of being normal. *Liver Stiffness less than 1.7 m/s: In the absence of other known clinical signs, rules out compensated advanced chronic liver disease. *Liver Stiffness 1.7-2.1 m/s: Suggestive of compensated advanced chronic liver disease but need further test for confirmation. *Liver Stiffness over 2.1 m/s: Rules in compensated advanced chronic liver disease. *Liver Stiffness over 2.4 m/s: Suggestive of clinically significant portal hypertension. QUALITY OF DATA SET: *IQR/Median value equal or less than 0.15 implies a quality data set. *IQR/Median value over 0.15 implies a poor quality data set. SIGNIFICANT CHANGE FROM PRIOR EXAM: Significant change if liver stiffness measurement is 10% or greater from prior exam. OTHER CONSIDERATIONS: The stage of liver fibrosis may be overestimated in the setting of acute hepatitis, liver inflammation, elevated liver function tests, hepatic vascular congestion, obstructive cholestasis, non-fasting state, and infiltrative diseases such as amyloidosis and lymphoma. In some patients with NAFLD, the liver stiffness thresholds for compensated advanced chronic liver disease may be lower. In causes other than viral hepatitis and NAFLD, liver stiffness thresholds are not well established.
== END 2022-01-17 08:56 | disposition home or self-care (01) ==
LOC: HO.US 08:55
PROVIDERS: PCP Physician Assistant Medical; Visit Provider Physician Assistant
DX: Z01.818 Encounter for other preprocedural examination (principal); E66.01 Morbid (severe) obesity due to excess calories
CPT/HCPCS: 76705; 76981

== ENCOUNTER 2022-01-18 07:45 | Outpatient (REF) | payer OTHER, SELFPAY ==
--- NOTE | ~2022-01-18 | FL_ITS ---
EXAMINATION: FL UPPER GI SERIES CLINICAL INFORMATION: Morbid/severe obesity due to excess calories. COMPARISON: None TECHNIQUE: Routine upper GI air-contrast study was performed in the upright and lying positions. FINDINGS: Following oral administration of thick barium in the upright view, there is normal propagation of the bolus from the oral cavity through the pharynx, esophagus and into the stomach without any evidence of obstruction, narrowing or stricture. On placing the patient supine and prone lying, the course, caliber and the peristalsis of the stomach, duodenal bulb and sweep are normal. The mucosal pattern of the esophagus, stomach and the duodenum is normal. There is no gastroesophageal reflux or hiatal hernia. FLUOROSCOPY TIME: 1.3 minutes DOSE AREA PRODUCT: 32.821 uGy-m2 (microgray-meter squared) FL/FL upper GI series IMPRESSION: Unremarkable upper GI air-contrast exam.
== END 2022-01-18 07:46 | disposition home or self-care (01) ==
LOC: HO.XRAY 07:45
PROVIDERS: PCP Physician Assistant Medical; Visit Provider Surgery
DX: E66.01 Morbid (severe) obesity due to excess calories (principal)
CPT/HCPCS: 74240

== ENCOUNTER → 2022-01-31 08:10 | Outpatient (BNVA) | payer OTHER, SELFPAY | PROVIDERS: PCP Physician Assistant Medical; Referring Provider Physician Assistant; Visit Provider Dietitian, Registered | DX: E66.01 Morbid (severe) obesity due to excess calories (principal) | CPT/HCPCS: 97803 ==

== ENCOUNTER → 2022-03-06 09:45 | Outpatient (BNVA) | payer OTHER, SELFPAY | PROVIDERS: PCP Physician Assistant Medical; Referring Provider Physician Assistant; Visit Provider Dietitian, Registered | DX: E66.9 Obesity, unspecified (principal); Z71.3 Dietary counseling and surveillance | CPT/HCPCS: 97803 ==

== ENCOUNTER → 2022-03-07 15:04 | Outpatient (BNVA) | payer OTHER, SELFPAY | PROVIDERS: PCP Physician Assistant Medical; Visit Provider Physician Assistant | DX: E66.01 Morbid (severe) obesity due to excess calories (principal); Z68.42 Body mass index [BMI] 45.0-49.9, adult | CPT/HCPCS: 99212 ==

== ENCOUNTER → 2022-04-04 10:15 | Outpatient (BNVA) | payer OTHER, SELFPAY | PROVIDERS: PCP Physician Assistant Medical; Referring Provider Physician Assistant; Visit Provider Dietitian, Registered | DX: E66.9 Obesity, unspecified (principal); Z68.42 Body mass index [BMI] 45.0-49.9, adult; Z71.3 Dietary counseling and surveillance | CPT/HCPCS: 97803 ==

== ENCOUNTER → 2022-04-24 08:21 | Outpatient (BNVA) | payer OTHER, SELFPAY | PROVIDERS: PCP Physician Assistant Medical; Referring Provider Physician Assistant Medical; Visit Provider Surgery | DX: E66.9 Obesity, unspecified (principal); K75.81 Nonalcoholic steatohepatitis (NASH); F43.20 Adjustment disorder, unspecified; Z68.42 Body mass index [BMI] 45.0-49.9, adult | CPT/HCPCS: 99202; 99212 ==

== ENCOUNTER → 2022-05-31 15:41 | Outpatient (BNVA) | payer OTHER, SELFPAY | PROVIDERS: PCP Physician Assistant Medical; Visit Provider Physician Assistant | DX: E66.01 Morbid (severe) obesity due to excess calories (principal); Z68.42 Body mass index [BMI] 45.0-49.9, adult | CPT/HCPCS: 99212 ==

== ENCOUNTER → 2022-06-05 10:12 | Outpatient (BNVA) | payer OTHER, SELFPAY | PROVIDERS: PCP Physician Assistant Medical; Visit Provider Surgery | DX: E66.01 Morbid (severe) obesity due to excess calories (principal); Z68.42 Body mass index [BMI] 45.0-49.9, adult; K75.81 Nonalcoholic steatohepatitis (NASH); F43.20 Adjustment disorder, unspecified | CPT/HCPCS: 99212 ==

== ENCOUNTER 2022-07-04 08:27 | Inpatient (IN) | payer OTHER, SELFPAY ==
[2022-06-19 10:44] VITALS: BMI 46.5
--- NOTE | 2022-07-03 10:40 | HO.ANESPROP2 ---
Documented by User: Yoselyn Kapoor NP 07/03/22 10:46 HPI - Anesthesia Eval Consult details Narrative: 26yo F for Gastrectomy Sleeve,EGD,possible diaphragmatic hernia,possible ventral hernia,possible open Labs 07/03/22 pending [facility] Active Problems Active Problems: All Active Problems (Updated 04/24/22 @ 09:22 by Eugenio Heath MD) Nonalcoholic steatohepatitis (LIND) (Acute) Obese (Acute) Adjustment disorder, unspecified (Acute) Diverticulosis (Acute) Morbid obesity (Acute) Nondisplaced fracture of fifth metacarpal bone with routine healing (Acute) Nondisplaced fracture of fifth metacarpal bone (Acute) Past Medical History Medical History No known health problems Obese Family History Family History Mother No problems noted. Father Hypercholesteremia Surgical History Surgical History Hx of colonoscopy Social History Social History Are you a primary landcare facilitator to a significant other at home: Yes (2 year old son, patient's father and child's father will assist post-op) Do you presently have visiting nurse or other home services: No Alcohol intake: current Alcohol intake frequency: holidays/special occasions only Patient Tobacco Use Status: Never used Tobacco Use of substances other than those prescribed or required for medical reasons: No Have you been hit, kicked, punched, or otherwise hurt by someone within the past year? 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[employer] Meds Allergies Allergy/AdvReac Type Severity Reaction Status Date / Time No Known Allergies Allergy Verified 07/04/22 09:18 [No Known Allergies*] Exam Exam Date and Time: July 03, 2022 1040 Height,Weight and Vital Signs: Height 5 ft 3 in Weight 119.295 kg Narrative Narrative: EKG 11/2021 Vent. Rate : 089 BPM ? ? Atrial Rate : 089 BPM ?? P-R Int : 154 ms? QRS Dur : 086 ms ? ? QT Int : 352 ms ? ? ? P-R-T Axes : 071 008 015 degrees ?? QTc Int : 428 ms ? Normal sinus rhythm Normal ECG No previous ECGs available Assessment and Plan Assessment Anesthesia Assessment: Chart Reviewed Documented by User: Geoffrey Templeton MD 07/04/22 11:29 HPI - Anesthesia Eval Consult details Narrative: 26yo F for Gastrectomy Sleeve,EGD,possible diaphragmatic hernia,possible ventral hernia,possible open PMFSH Past Medical History Medical History No known health problems Obese Family History Family History Mother No problems noted. Father Hypercholesteremia Family history of problems with anesthesia: No Surgical History Surgical History Hx of colonoscopy History of Problems with Anesthesia: No Social History Social History Are you a primary landcare facilitator to a significant other at home: Yes (2 year old son, patient's father and child's father will assist post-op) Do you presently have visiting nurse or other home services: No Alcohol intake: current Alcohol intake frequency: holidays/special occasions only Patient Tobacco Use Status: Never used Tobacco Use of substances other than those prescribed or required for medical reasons: No Have you been hit, kicked, punched, or otherwise hurt by someone within the past year? 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[employer] Meds Allergies Allergy/AdvReac Type Severity Reaction Status Date / Time No Known Allergies Allergy Verified 07/04/22 09:18 [No Known Allergies*] Exam Airway Mallampati Class: II TM Dist: >3cm Neck ROM: Full Loose/Missing/Broken Teeth: Yes (Fillings , lower wire , poor dentition ) Heart: S1 , S2 Lungs: b/l breath sounds Assessment and Plan Assessment Anesthesia Assessment: Anesthesia Plan Discussed Final Anesthetic Review Family History of Problems with Anesthesia: No History of Problems with Anesthesia: No NPO: Yes ASA Class: III Final Preanesthetic Review: Meds/Allgs Chart Reviewed, Consent Obtained/Reviewed and Anes Risks/Benef Reviewed Patient Risk: Intermediate Procedure Risk: Intermediate Anesthetic Plan Anesthetic Plan: GA Disposition: Standard PACU
[2022-07-03 13:17] LABS: COVID-19 Test Negative (Negative); IDNOW Serial# 55D5AD1C
[2022-07-04] VITALS (13 sets, daily range): BP systolic 101–134; BP diastolic 48–69; PULSE 80–101; RESP 15–24; TEMP 36.3–36.4; O2SAT 96–100
[2022-07-04 08:48] LABS: UPreg QC Valid YES; Urine Pregnancy NEGATIVE (NEGATIVE)
[2022-07-04 08:53] LABS: MANUAL DIFF FLAG NO
[2022-07-04 08:56] LABS: Basophils Absolute Auto 0.1 X10*3/uL (0.0-0.2); Basophils Percent Auto 0.5 % (0-2); Eosinophils Absolute Auto 0.1 X10*3/uL (0.0-0.4); Eosinophils Percent Auto 0.7 % (0-4); Hematocrit 39.4 % (37.0-47.0); Hemoglobin 12.9 g/dl (12.0-16.0); Imm Gran Abs Auto 0.04 X10*3/uL (0.00-0.03); Imm Gran Pct Auto 0.4 % (0.0-0.4); Lymphocytes Absolute Auto 2.3 X10*3/uL (1.2-4.9); Lymphocytes Percent Auto 20.9 % (20-40); Mean Corpuscular HGB Conc 32.7 g/dl (31.0-35.0); Mean Corpuscular Hemoglobin 26.5 pg (27.0-33.0); Mean Corpuscular Volume 81.1 fL (80.0-98.0); Mean Platelet Volume 9.8 fL (9.4-12.3); Monocytes Absolute Auto 0.5 X10*3/uL (0.1-1.2); Monocytes Percent Auto 4.6 % (2-11); Neutrophils Percent Auto 72.9 % (45-73); Platelet Count 311 X10*3/uL (160-400); Red Blood Count 4.86 X10*6/uL (4.20-5.50); Red Cell Distribution Width 14.1 % (11.0-16.0)
[2022-07-04 09:03] LABS: INTERNATIONAL NORM RATIO 1.1 (0.9-1.1); Prothrombin Time 12.2 SEC (10.0-13.1)
[2022-07-04 09:06] LABS: Partial Thromboplastin Time 32.3 SEC (26.0-36.4)
[2022-07-04] MEDS: Scopolamine 1.5 MG PATCH.TD.3 TRANSDERMA (09:09)
[2022-07-04] MEDS: Lactated Ringers 1,000 ML 150 ML IVCONT ×3 (09:09→19:47)
[2022-07-04 09:10] LABS: Anion Gap 16 (12-20); Blood Urea Nitrogen 13 mg/dL (9-16); Calcium 9.5 mg/dL (8.4-10.2); Carbon Dioxide 23 mmol/L (22-29); Chloride 102 mmol/L (96-108); Creatinine Clr Calc Pharmacy 164.2; Estimated Glomerular Filt Rate > 60; Glucose Random 79 mg/dL (60-115); Potassium 3.9 mmol/L (3.3-5.1); Sodium 137 mmol/L (135-145)
--- NOTE | 2022-07-04 10:03 | P.OP_ITS ---
Operative Note Operative Note Date of Service: 07/04/22 Narrative: Preop diagnosis: [Morbid obesity] Postop diagnosis: [same, LIND] Procedure: [Laparoscopic sleeve gastrectomy, intraoperative upper endoscopy, gastropexy] Surgeon: Eugenio Heath MD Assist: [Anisha Maya PA-C] Anesthesia: [GET, local: Ropivicaine 0.5%] Estimated blood loss: [3cc] Specimen: [Portion of stomach including fundus] Intraoperative findings: [No evidence of hiatal hernia; LIND with large left lob e of the liver; grossly normal stomach] Indications: [The patient is a 26-year-old woman with a history of morbid obesity who has heaviest weight entering our bariatric program was 299 lb. After multiple failed episodes of weight loss, we reviewed options including surgical weight loss including sleeve gastrectomy or gastric bypass versus continued medical management. After being provided Education and making healthy lifestyle changes, the patient wanted to proceed with a laparoscopic sleeve gastrectomy. The inherent risks were discussed and apparently understood. I reviewed the inherent risks of this procedure which include, but are not limited to: Bleeding that could require another operation or blood transfusion; the inherent risks of transfusion reaction infectious disease from blood transfusions; the risk of staple line leaks that could cause sepsis, multi- system organ failure and ; the risk of mesenteric or deep vein thrombosis of the lower extremities that could cause a fatal pulmonary embolism was reviewed; the risk of GERD that could require conversion to gastric bypass was discussed; the risk of recurrent hiatal hernia, especially in the setting of weight regain was reviewed. The risk of weight regain if maladaptive eating and sedentary behavior continue was discussed. The importance of proper diet and increased activity to augment surgical weight loss and the fact that no operation would result in weight loss of poor dietary decisions and sedentary behavior are resumed were discussed at length and apparently understood. Interpretive services were used to convey all of this to the patient.] Procedure: [The patient was identified in the preoperative holding area by myself and again in the operating suite by myself and the team. Patient was placed supine on the operating table. Safety straps were utilized and a footboard utilized. The patient was induced in general endotracheal anesthesia administered with excellent effect. An appropriate time-out was performed. The patient's abdomen was then widely prepped and draped in the usual manner for surgery using chlorhexidine. Antibiotics per protocol were administered by Anesthesia. After infiltrating preemptive local in the skin and subcutaneous tissues in the epigastrium approximately 10cm from the xiphoid and the midline of the epigastrium, a stab incision was made sharply in the left subcostal abdomen and the Veress needle inserted without incident. An appropriate drop test was performed then a pneumoperitoneum of 15 mmHg was obtained using carbon dioxide. Opening pressures were 8 mmHg. Next, a 5 mm 0 degree scope over a 5 mm Optiview trocar was used to access the abdomen via the epigastric incision in the midline. Once the abdomen was entered, the the trocar obturator was removed and the laparoscope was used to confirm there was no injury from the Veress needle nor trocar insertion injury to the bowel or mesentery, then the scope was switched to a 5 mm 45 degree laparoscope. Next, using preemptive local, additional 5 mm trocars were placed under direct laparoscopic vision on the patient's left abdomen, then right and the 5 mm midline trocar upsized to a 12 mm to accommodate the stapler. The patient was then positioned in reverse Trendelenburg and the liver retractor deployed through the right lateral 5 mm trocar and secured. A 40 [place] ViSiGi bougie was inserted by Anesthesia per os and advanced to the stomach for decompression. It was then withdrawn to the GE junction all under direct laparoscopic vision. Dissection was begun along the greater curvature using the 5 mm [place] LigaSure for hemostasis and continued to the left angely of the diaphragm. Dissection was then carried towards the pylorus to 3-4 cm from the pylorus and retro gastric adhesions lysed. The gastroesophageal fat pad was carefully mobilized taking care to avoid injury to the esophagus and stomach and dissection carried towards the short gastrics taking care to avoid injury to the spleen and splenic artery. The diaphragmatic hiatus was carefully examined for a hernia, and no hernia was appreciated. Next, the 40 Fr ViSiGi bougie was advanced by anesthesia under direct vision and laparoscopic guidance and positioned in the antrum approximately 3 cm from the pylorus using laparoscopic graspers to serve as a guide for a stapled sleeve gastrectomy. Stapling was performed with [employer] Endo-AUBREY stapler with a purple 45 and then orange 45 and 60 loads. The bougie served as a guide to maintain the same sleeve caliber to avoid stricture & sleeve distortion. The 10 mm clip enroute controller was used to apply additional clips to the staple line. Care was taken to be sure that the sleeve laid flat and was without stricture. Once the sleeve was complete, the portion of stomach was placed in the lower abdomen to be sent for permanent section. The staple line, gastrocolic omentum, spleen and short gastric areas were all inspected for hemostasis which was found to be good. The ViSiGi bougie used for a leak test by reducing the reverse Trendelenburg and instilling sterile saline. Anesthesia that ran of O2 at 1 L per minute via the tube and no bubbles were demonstrated from the staple line. Next, the bougie was withdrawn under laparoscopic vision used to suction the esophagus and hypopharynx and then discarded. Next, I broke scrub perform an on-table upper endoscopy to assess the the esophagus and stomach & sleeve. The patient was returned to neutral position and the Olympus 160 gastroscope was advanced taking care to preserve the endotracheal tube. The esophagus was intubated without incident. Minimal air was insufflated and the scope advanced into the newly formed sleeve. The staple line was inspected for hemostasis and the morphology of the sleeve appeared straight with a uniform diameter. Intraoperatively, there was no evidence of staple line leak seen during laparoscopy as air was insufflated via endoscope. The scope was then used to aspirate the air from the sleeve withdrawn and removed. I then rescrubbed to return to the operative field and again inspected the field for hemostasis. The patient was again placed in reverse Trendelenburg. A gastropexy was performed using 2-0 Polysorb suture to secure the sleeve gastrectomy to the gastrocolic omentum. After final assessment for hemostasis, the patient was returned to neutral position, a Sae used to withdraw the stomach which was sent for permanent section. The fascia of the 12 mm midline was closed using an 0 Polysorb on a suture Passer under direct laparoscopic vision. The abdomen was then deflated and all trocars removed. The suture was then tied and the skin closed with 4-0 Monocryl subcuticular sutures. The abdomen was then washed and dried, benzoin and Steri-Strips applied followed by Band-Aids. The patient tolerated the procedure well was then extubated the recover in stable condition. All sponge needle and instrument counts were correct x2. The procedure was communicated to the pt's family, at her request, by Anisha Maya at [phone] on my behald since Aure only speaks French.]
--- NOTE | 2022-07-04 10:03 | MHC.SHP ---
Pre-Procedural Eval Section A Date of Service: 07/04/22 The patient is an INPATIENT: Yes The History & Physical has been completed within 30 days and I have reviewed it.: Yes Section B Chief Complaint: Obesity Allergies: Allergies Allergy/AdvReac Type Severity Reaction Status Date / Time No Known Allergies Allergy Verified 07/04/22 09:18 [No Known Allergies*] Plan I have reviewed the history and physical and performed a pertinent physical examination on my patient. No changes have occurred unless specified.
--- NOTE | 2022-07-04 13:40 | PM.DS ---
DS: Providers Provider Date of Service: 07/05/22 Date of admission: 07/04/22 08:27 Primary care physician: Unknown Physician DS: Summary Hospital Course Hospital Course: ADMITTING DIAGNOSIS: morbid obesity DISCHARGE DIAGNOSIS: same, s/p laparoscopic sleeve gastrectomy PAST SURGICAL HISTORY: none PROCEDURE: upper endoscopy, laparoscopic sleeve gastrectomy DISCHARGE SUMMARY: History of Present Illness: The patient is a 26 year-old woman with a BMI of 52.9 kg/m2 and associated co-morbidities as described above. The patient had extensive work-up,lost 34.2 lbs preoperatively and was electively scheduled for laparoscopic, possible open sleeve gastrectomy and gastropexy. Risks and complications of the surgery were discussed with the patient in advance, particularly the possibility of , pulmonary embolism, anastomotic leak, bleeding, bowel injury, GERD, cardiac, renal or pulmonary complications. The patient understood all the risks and was in agreement with the surgical plan. Hospital Course: The patient underwent an uneventful laparoscopic sleeve gastrectomy with gastropexy on the day of admission. Postoperatively, the patient was transferred to the surgical floor. The patient received IV Acetaminophen and IV dilaudid for pain control. Patient was started on bariatric phase 1 diet POD #0. On postoperative day one, the patient was feeling well without nausea, vomiting, fevers, or tachycardia. The patient had some mild incisional pain and the abdomen was soft. On the morning of postoperative day one, the patient was continued on 1 ounce of water or ice every half hour. During the day, the patient did fairly well, having some incisional pain, but able to ambulate adequately and to tolerate liquids well. Since the patient is doing well, we decided that the patient was ready to be discharged. The patient was given instructions to follow-up with me next week and to call my office for any fever over 101, persistent abdominal pain, nausea, vomiting, GERD, symptoms of DVT such as calf tenderness, or leg swelling, or pulmonary embolism such as chest pain or shortness of breath. The patient was also instructed to drink 40-60 ounces of liquids per day using the 1-ounce cups. The patient had been given prescriptions for Tylenol for pain, Zofran prn for nausea, and pantoprazole and carafate previously. The patient was encouraged to ambulate and use the incentive spirometer. The patient was allowed to shower, but no baths, and encouraged to stay active at home. All of these instructions were given to the patient personally. All questions were answered and the patient understood all instructions, the instructions were also given to the patient in print. Time Spent with Patient Time attestation: Total time spent providing and/or coordinating discharge services: Discharge coordination time: Less than 30 minutes Quality: Safe Use of Opioids Does Pt have an Active Cancer Diagnosis on the Problem List?: No Quality: Stroke Does the patient have a stroke diagnosis?: No Physical Exam Vital Signs: Vital Signs: Last Vital Signs Temp 97.4 F 07/04/22 08:55 Pulse 80 07/04/22 08:55 Resp 15 07/04/22 08:55 BP 111/69 07/04/22 08:55 Pulse Ox 98 07/04/22 08:55 O2 Del Method 07/04/22 08:55 BMI result Body Mass Index 46.5 DS: Data Data Completed and Pending Pending studies at discharge: Pending at discharge 07/04/22 12:45 Surgical [PTH] Routine Labs on day of discharge: Laboratory Results - last 24 hr 07/04/22 07/04/22 07/04/22 08:37 08:45 08:45 WBC 11.0 H RBC 4.86 Hgb 12.9 Hct 39.4 MCV 81.1 MCH 26.5 L MCHC 32.7 RDW 14.1 Plt Count 311 MPV 9.8 Immature Gran % (Auto) 0.4 Neut % (Auto) 72.9 Lymph % (Auto) 20.9 [place] % (Auto) 4.6 Eos % (Auto) 0.7 Baso % (Auto) 0.5 Lymph # (Auto) 2.3 [place] # (Auto) 0.5 Eos # (Auto) 0.1 Baso # (Auto) 0.1 Abs Immat Gran (auto) 0.04 H Absolute Neuts (auto) 8.0 Absolute Nucleated RBC 0.000 Nucleated RBC % (auto) 0.0 PT INR APTT Sodium 137 Potassium 3.9 Chloride 102 Carbon Dioxide 23 Anion Gap 16 BUN 13 Creatinine 0.66 Estim Creat Clear Calc 164.2 Estimated GFR > 60 Random Glucose 79 Calcium 9.5 Urine Test NEGATIVE Blood Type Antibody Screen 07/04/22 07/04/22 08:45 08:45 WBC RBC Hgb Hct MCV MCH MCHC RDW Plt Count MPV Immature Gran % (Auto) Neut % (Auto) Lymph % (Auto) [place] % (Auto) Eos % (Auto) Baso % (Auto) Lymph # (Auto) [place] # (Auto) Eos # (Auto) Baso # (Auto) Abs Immat Gran (auto) Absolute Neuts (auto) Absolute Nucleated RBC Nucleated RBC % (auto) PT 12.2 INR 1.1 APTT 32.3 Sodium Potassium Chloride Carbon Dioxide Anion Gap BUN Creatinine Estim Creat Clear Calc Estimated GFR Random Glucose Calcium Urine Test Blood Type A Positive Antibody Screen NEGATIVE Discharge Plan Discharge Anticipated Discharge Date/Time: 07/05/22 10:37 Patient Disposition: Home, Self-Care Discharge Diagnosis: s/p sleeve gastrectomy Referrals: Physician,Fernandez J [Primary Care Provider] - 1 Week Eugenio Heath MD [Physician] - 1 Week Discharge Medications: Continued clotrimazole 1 % cream 1 appl topical BID Qty: 90 2RF Discontinued cholecalciferol (vitamin D3) 50 mcg (2,000 unit) capsule 50 mcg PO DAILY Qty: 30 6RF thiamine HCl (vitamin B1) 100 mg tablet 100 mg PO DAILY Qty: 30 6RF vitamin A palmitate 10,000 unit tablet 20,000 unit PO DAILY 14 Days Qty: 28 0RF ibuprofen 600 mg tablet 600 mg PO Q6H PRN (Reason: pain) Qty: 30 0RF famotidine [Pepcid] 20 mg tablet 20 mg PO BID PRN (Reason: Stomach acid pain) Qty: 14 0RF No Action ondansetron HCl 4 mg tablet 4 mg PO Q6-8H PRN (Reason: nausea and vomiting) Qty: 20 0RF pantoprazole 40 mg tablet,delayed release (DR/EC) 40 mg PO QAM Qty: 30 2RF sucralfate 100 mg/mL suspension 10 ml PO BID Qty: 400 2RF acetaminophen 500 mg tablet 500 mg PO Q6H PRN (Reason: pain) Qty: 30 1RF Discharge Orders: Discharge Order (Routine); Ordered 07/05/22 Ordered By: Eugenio Heath Diet: Bariatric diet Activity on Discharge: No heavy lifting Stand Alone Forms: Patient Portal Discharge page Care Plan Goals: weight loss Health Concerns: morbid obesity Plan of Treatment: No tub baths, sex or returning to work until discussed at first post op appointment. No exercise, alcohol, tobacco or illegal drug use. Continue to use incentive spirometer hourly while awake. Walk in home for 5- 10 minutes every 2 hours during the first week. Continue phase 1 diet today and start phase 2 diet tomorrow morning. Follow all instructions in the bariatric handbook and call with any questions. 1. Please call your doctor or come back to the emergency room should any new symptoms arise. 2. You will receive a courtesy call from [facility] 24-48 hours after discharge. 3. Activity: abstain from alcohol, practice limited stair climbing, no bending, no driving, no exercise, no illicit substances, no lifting, no sex, no tub bath, no work. 4. Diet: continue as discussed with bariatric team.. 5. Dressing Change/Wound Care: Do not change or remove surgical dressings unless they are wet or soiled. 6. Call your doctor if: - Your temperature exceeds 101.5 F - You experience excessive pain or swelling - You have an unexpected reaction to medication - You have excessive bleeding - You experience continued vomiting/nausea - Your incision begins to separate - Your incision shows signs of infection such as increased redness, swelling, excessive pain, heat, or drainage (light blood or clear fluid is normal) 7. General instructions: No lifting greater than 5 lbs for the next 4 weeks[address] driving within 24 hours of taking narcotic pain medications. If you do not move your bowels in the next 2 days, please take milk of magnesia over the counter. Please follow the post op diet and do not advance your diet until you are seen in the office in about 2 weeks. Please walk around your home every hour or two to prevent blood clots from forming in your legs. You do not need to wake from sleeping to walk. Please sleep in a bed or couch to prevent kinking at the hips and knees. Please take your incentive spirometer (your lung collision worker) home with you and use it for the next few days to prevent pneumonias. You may shower, no hot tubs, baths or swimming pools. Please call the office with any questions or concerns such as increasing abdominal pain, fever, chills, shortness of breath, chest pain, leg pain or swelling, or redness or drainage from your incisions. Do not hesitate to contact the office with any questions at . The patient's medical history has been reviewed and they are considered low risk for post op DVT and therefore DVT prophylaxis is not considered necessary. Travel after surgery was reviewed. The patient has not disclosed any travel plans during the first 30 days after surgery and they have been advised that within the first 30 days after surgery any bus, plane, train or car travel over 2 hours in duration is contraindicated due to the possibility of developing blood clots from immobility. Any travel, needs to include periods of ambulation of 10 minutes in duration every 2 hours. The patient was instructed to discuss any plans for travel during this period with their bariatric surgeon. Assessment: stable post op sleeve gastrectomy Discharge Date/Time: 07/05/22 10:55
[2022-07-04 14:11] LABS: Hematocrit 39.1 % (37.0-47.0); Hemoglobin 12.6 g/dl (12.0-16.0)
[2022-07-04 14:29] LABS: Anion Gap 18 (12-20); Blood Urea Nitrogen 13 mg/dL (9-16); Calcium 8.9 mg/dL (8.4-10.2); Carbon Dioxide 19 mmol/L (22-29); Chloride 103 mmol/L (96-108); Creatinine Clr Calc Pharmacy 148.5; Estimated Glomerular Filt Rate > 60; Glucose Random 112 mg/dL (60-115); Potassium 4.3 mmol/L (3.3-5.1); Sodium 136 mmol/L (135-145)
[2022-07-04] MEDS: Famotidine/PF 20 MG/2 ML VIAL IVPUSH ×2 (14:30→19:41)
--- NOTE | 2022-07-04 16:16 | P.PNGS_ITS ---
Subjective Subjective Date of Service: 07/04/22 Patient reports: still having pain Interval history: The patient is resting comfortably. She reports expected postoperative pain but denies any nausea or vomiting. She has not been out of bed to void yet it is tolerating water. She otherwise denies difficulty breathing, pain in her chest or shortness of breath. Physical Exam Vital Signs: Vital Signs: Last Vital Signs Temp 97.6 F 07/04/22 15:43 Pulse 91 07/04/22 15:43 Resp 16 07/04/22 15:43 BP 107/58 L 07/04/22 15:43 Pulse Ox 98 07/04/22 15:43 O2 Del Method 07/04/22 15:43 O2 Flow Rate 2.0 07/04/22 15:43 BMI result Body Mass Index 46.5 Patient is resting comfortably. Dressings are clean and intact Objective Data Active Medications Famotidine (Famotidine/Pf 20 Mg/2 Ml Vial) 20 mg IVPUSH BID [facility] Last Admin: 07/04/22 14:30 Dose: 20 mg Documented By: THEO Fentanyl (Fentanyl Citrate/Pf 100 Mcg/2 Ml Vial) 25 mcg IVPUSH Q5M PRN; Protocol PRN Reason: Pain, Moderate (Pain Scale 4-6 Hydromorphone HCl (Hydromorphone Hcl 0.5 Mg/0.5 Ml Syringe) 0.25 mg IVPUSH Q5M PRN; Protocol PRN Reason: Pain, Severe (Pain Scale 7-10) Hydromorphone HCl (Hydromorphone Hcl 0.5 Mg/0.5 Ml Syringe) 0.25 mg IVPUSH Q4H PRN; Protocol PRN Reason: Pain, Severe (Pain Scale 7-10) Lactated Ringer's (Lr) 1,000 mls @ 150 mls/hr IVCONT .Q6H40M [facility] Last Admin: 07/04/22 15:09 Dose: 150 mls/hr Documented By: THEO Promethazine HCl 6.25 mg/ (Sodium Chloride) 50.25 mls @ 201 mls/hr IV ONCE PRN PRN Reason: Nausea and Vomiting Cefazolin Sodium/Dextrose (Ancef) 2 gm in 50 mls @ 100 mls/hr IV POSTOP ONE Stop: 07/04/22 16:35 Acetaminophen (Ofirmev) 1,000 mg in 100 mls @ 16.7 mls/hr IV .Q6H [facility]ACH Sodium Chloride (0.9 % Sodium Chloride Flush 3 Ml Syringe) 3 ml IVFLUSH QSHIFT [facility]ACH Labs CBC & Chem 7: 07/04/22 13:58 07/04/22 13:58 Labs: Laboratory Results - last 24 hr 07/04/22 07/04/22 07/04/22 08:37 08:45 08:45 MCV 81.1 MCH 26.5 L MCHC 32.7 RDW 14.1 Plt Count 311 MPV 9.8 Immature Gran % (Auto) 0.4 Neut % (Auto) 72.9 Lymph % (Auto) 20.9 [place] % (Auto) 4.6 Eos % (Auto) 0.7 Baso % (Auto) 0.5 Lymph # (Auto) 2.3 [place] # (Auto) 0.5 Eos # (Auto) 0.1 Baso # (Auto) 0.1 Abs Immat Gran (auto) 0.04 H Absolute Neuts (auto) 8.0 Absolute Nucleated RBC 0.000 Nucleated RBC % (auto) 0.0 PT INR APTT Anion Gap 16 Estim Creat Clear Calc 164.2 Estimated GFR > 60 Random Glucose 79 Calcium 9.5 Urine Test NEGATIVE Blood Type Antibody Screen 07/04/22 07/04/22 07/04/22 08:45 08:45 13:58 MCV MCH MCHC RDW Plt Count MPV Immature Gran % (Auto) Neut % (Auto) Lymph % (Auto) [place] % (Auto) Eos % (Auto) Baso % (Auto) Lymph # (Auto) [place] # (Auto) Eos # (Auto) Baso # (Auto) Abs Immat Gran (auto) Absolute Neuts (auto) Absolute Nucleated RBC Nucleated RBC % (auto) PT 12.2 INR 1.1 APTT 32.3 Anion Gap 18 Estim Creat Clear Calc 148.5 Estimated GFR > 60 Random Glucose 112 Calcium 8.9 D Urine Test Blood Type A Positive Antibody Screen NEGATIVE Procedures Date of Service Date of Service: 07/04/22 Progress Note: A&P Assessment and plan (1) S/P laparoscopic sleeve gastrectomy: Status: Acute (2) Nonalcoholic steatohepatitis (LIND): Status: Acute (3) Obese: Status: Acute (4) Adjustment disorder, unspecified: Status: Acute Plan Labs noted. Continue water as tolerated At bed/ambulate later tonight See orders Time Spent With Patient Time: Total time spent is greater than 50% in coordination of care (as documented) at patient's floor/unit and/or counseling patient: Quality Stroke Does the patient have a stroke diagnosis?: No VTE Prior VTE?: No VTE Risk Level:: Surgical - moderate VTE Device Contraindication: N/A - Device Ordered VTE Drug Contraindication: Treatment Not Tolerated
[2022-07-04] MEDS: ceFAZolin Sodium/Dextrose,Iso 2 GM/50 ML PIGGYBACK IV (16:32)
[2022-07-04] MEDS: ondansetron HCL 4 MG/2 ML VIAL IVPUSH (19:40)
[2022-07-04] MEDS: 0.9 % Sodium Chloride Flush 3 ML SYRINGE IVFLUSH (19:41)
[2022-07-05] MEDS: Lactated Ringers 1,000 ML 150 ML IVCONT ×2 (02:11→08:00)
[2022-07-05 03:29] VITALS: BP 119/73; PULSE 99; RESP 18; TEMP 36.3; O2SAT 98
[2022-07-05] MEDS: ondansetron HCL 4 MG/2 ML VIAL IVPUSH (05:09)
[2022-07-05 05:53] LABS: MANUAL DIFF FLAG NO
[2022-07-05 06:00] LABS: Basophils Percent Auto 0.2 % (0-2); Hematocrit 37.3 % (37.0-47.0); Hemoglobin 12.2 g/dl (12.0-16.0); Imm Gran Pct Auto 0.6 % (0.0-0.4); Lymphocytes Absolute Auto 1.9 X10*3/uL (1.2-4.9); Lymphocytes Percent Auto 10.6 % (20-40); Mean Corpuscular HGB Conc 32.7 g/dl (31.0-35.0); Mean Corpuscular Hemoglobin 26.6 pg (27.0-33.0); Mean Corpuscular Volume 81.3 fL (80.0-98.0); Mean Platelet Volume 10.1 fL (9.4-12.3); Monocytes Percent Auto 5.5 % (2-11); Neutrophils Absolute Auto 14.6 x10*3/uL (2.0-8.3); Neutrophils Percent Auto 83.1 % (45-73); Platelet Count 295 X10*3/uL (160-400); Red Blood Count 4.59 X10*6/uL (4.20-5.50); Red Cell Distribution Width 14.1 % (11.0-16.0); White Blood Count 17.6 X10*3/uL (4.8-10.8)
[2022-07-05 06:16] LABS: Anion Gap 16 (12-20); Blood Urea Nitrogen 8 mg/dL (9-16); Calcium 9.1 mg/dL (8.4-10.2); Carbon Dioxide 22 mmol/L (22-29); Chloride 104 mmol/L (96-108); Creatinine Clr Calc Pharmacy 190.1; Estimated Glomerular Filt Rate > 60; Glucose Random 80 mg/dL (60-115); Potassium 4.1 mmol/L (3.3-5.1); Sodium 138 mmol/L (135-145)
--- NOTE | 2022-07-05 07:02 | P.PNGS_ITS ---
Subjective Subjective Date of Service: 07/05/22 Patient reports: feels better and tolerating liquids well Interval history: The patient has done well overnight and is meeting discharge criteria. Her postoperative nausea resolved fairly quickly and she denies any chest pain, difficulty breathing or shortness of breath. She has been up to the bathroom. Physical Exam Vital Signs: Vital Signs: Last Vital Signs Temp 97.3 F 07/05/22 03:29 Pulse 99 07/05/22 03:29 Resp 18 07/05/22 03:29 BP 119/73 07/05/22 03:29 Pulse Ox 98 07/05/22 03:29 O2 Del Method 07/05/22 03:29 O2 Flow Rate 2.0 07/04/22 15:43 BMI result Body Mass Index 46.5 On exam, she is comfortable and nontoxic She is speaking in full sentences She declined translator/interpreter Her abdomen is obese and her dressings are clean, dry and intact Appropriate incisional tenderness is present Objective Data Active Medications Famotidine (Famotidine/Pf 20 Mg/2 Ml Vial) 20 mg IVPUSH BID [facility] Last Admin: 07/04/22 19:41 Dose: 20 mg Documented By: CHARITO Hydromorphone HCl (Hydromorphone Hcl 0.5 Mg/0.5 Ml Syringe) 0.25 mg IVPUSH Q4H PRN; Protocol PRN Reason: Pain, Severe (Pain Scale 7-10) Lactated Ringer's (Lr) 1,000 mls @ 150 mls/hr IVCONT .Q6H40M [facility] Last Admin: 07/05/22 02:11 Dose: 150 mls/hr Documented By: CHARITO Promethazine HCl 6.25 mg/ (Sodium Chloride) 50.25 mls @ 201 mls/hr IV ONCE PRN PRN Reason: Nausea and Vomiting Acetaminophen (Ofirmev) 1,000 mg in 100 mls @ 16.7 mls/hr IV .Q6H [facility] Last Admin: 07/05/22 05:09 Dose: 16.7 mls/hr Documented By: CHARITO Metoclopramide HCl (Metoclopramide Hcl 10 Mg/2 Ml Vial) 10 mg IVPUSH Q6H PRN PRN Reason: Nausea and Vomiting Ondansetron HCl (Ondansetron Hcl 4 Mg/2 Ml Vial) 4 mg IVPUSH Q8H [facility] Last Admin: 07/05/22 05:09 Dose: 4 mg Documented By: CHARITO Sodium Chloride (0.9 % Sodium Chloride Flush 3 Ml Syringe) 3 ml IVFLUSH QSHIFT [facility] Last Admin: 07/04/22 19:41 Dose: 3 ml Documented By: CHARITO Labs CBC & Chem 7: 07/05/22 05:09 07/05/22 05:09 Labs: Laboratory Results - last 24 hr 07/04/22 07/04/22 07/04/22 08:37 08:45 08:45 MCV 81.1 MCH 26.5 L MCHC 32.7 RDW 14.1 Plt Count 311 MPV 9.8 Immature Gran % (Auto) 0.4 Neut % (Auto) 72.9 Lymph % (Auto) 20.9 [place] % (Auto) 4.6 Eos % (Auto) 0.7 Baso % (Auto) 0.5 Lymph # (Auto) 2.3 [place] # (Auto) 0.5 Eos # (Auto) 0.1 Baso # (Auto) 0.1 Abs Immat Gran (auto) 0.04 H Absolute Neuts (auto) 8.0 Absolute Nucleated RBC 0.000 Nucleated RBC % (auto) 0.0 PT INR APTT Anion Gap 16 Estim Creat Clear Calc 164.2 Estimated GFR > 60 Random Glucose 79 Calcium 9.5 Urine Test NEGATIVE Blood Type Antibody Screen 07/04/22 07/04/22 07/04/22 08:45 08:45 13:58 MCV MCH MCHC RDW Plt Count MPV Immature Gran % (Auto) Neut % (Auto) Lymph % (Auto) [place] % (Auto) Eos % (Auto) Baso % (Auto) Lymph # (Auto) [place] # (Auto) Eos # (Auto) Baso # (Auto) Abs Immat Gran (auto) Absolute Neuts (auto) Absolute Nucleated RBC Nucleated RBC % (auto) PT 12.2 INR 1.1 APTT 32.3 Anion Gap 18 Estim Creat Clear Calc 148.5 Estimated GFR > 60 Random Glucose 112 Calcium 8.9 D Urine Test Blood Type A Positive Antibody Screen NEGATIVE 07/05/22 07/05/22 05:09 05:09 MCV 81.3 MCH 26.6 L MCHC 32.7 RDW 14.1 Plt Count 295 MPV 10.1 Immature Gran % (Auto) 0.6 H Neut % (Auto) 83.1 H Lymph % (Auto) 10.6 L [place] % (Auto) 5.5 Eos % (Auto) 0.0 Baso % (Auto) 0.2 Lymph # (Auto) 1.9 [place] # (Auto) 1.0 Eos # (Auto) 0.0 Baso # (Auto) 0.0 Abs Immat Gran (auto) 0.10 H Absolute Neuts (auto) 14.6 H Absolute Nucleated RBC 0.000 Nucleated RBC % (auto) 0.0 PT INR APTT Anion Gap 16 Estim Creat Clear Calc 190.1 Estimated GFR > 60 Random Glucose 80 Calcium 9.1 Urine Test Blood Type Antibody Screen Procedures Date of Service Date of Service: 07/05/22 Progress Note: A&P Assessment and plan (1) S/P laparoscopic sleeve gastrectomy: Status: Acute (2) Nonalcoholic steatohepatitis (LIND): Status: Acute (3) Obese: Status: Acute (4) Adjustment disorder, unspecified: Status: Acute (5) Morbid obesity: Status: Acute Plan Labs reviewed and stable Advanced to bariatric phase 2 Okay for discharge later today. Instructions reviewed and questions answered. Time Spent With Patient Time: Total time spent is greater than 50% in coordination of care (as documented) at patient's floor/unit and/or counseling patient: Quality Stroke Does the patient have a stroke diagnosis?: No VTE Prior VTE?: No VTE Risk Level:: Surgical - moderate VTE Device Contraindication: N/A - Device Ordered VTE Drug Contraindication: Treatment Not Tolerated
[2022-07-05 07:19] VITALS: BP 111/56; PULSE 68; RESP 17; TEMP 36.4; O2SAT 99
[2022-07-05] MEDS: Famotidine/PF 20 MG/2 ML VIAL IVPUSH (07:59)
--- NOTE | 2022-07-05 08:40 | MHC.CM.PN ---
CM ATTEMPTED TO MEET W/PT HOWEVER PT MTG W/BARIATRIC RIM FIRE PRIMING TOOL SETTER, CM TO REVISIT.
--- NOTE | 2022-07-05 09:59 | HO.POSTANES ---
Post Anesthesia Evaluation Post Anesthesia Evaluation Vital Signs: Vital Signs Temp Pulse Resp BP Pulse Ox O2 Del Method 07/05/22 07:19 97.6 F 68 17 111/56 L 99 Room Air 07/05/22 03:29 97.3 F 99 18 119/73 98 Room Air 07/04/22 23:21 97.6 F 101 H 19 121/61 96 Room Air Anesthesia: General Endotracheal-GETA Mental Status: Awake Pain Control: Satisfactory Nausea/Vomiting: Mild Hydration: Adequate Anesthesia-Related Issues: No Anes. Related Issues
== END 2022-07-05 10:55 | disposition home or self-care (01) | DRG 403 ==
LOC: HO.SSSA 13:40 → HO.S3 15:05
PROVIDERS: Nurse Practitioner; Physician Assistant; Physician Assistant Surgical; Admitting Provider Surgery; PCP Nurse Practitioner Family; Visit Provider Surgery
PROC: 0DB64Z3 Excision of Stomach, Percutaneous Endoscopic Approach, Vertical (ICD-10-PCS; CPT 43845; principal; 2022-07-04 10:10)
DX: E66.01 Morbid (severe) obesity due to excess calories (principal); K75.81 Nonalcoholic steatohepatitis (NASH); F43.20 Adjustment disorder, unspecified; Z20.822 Contact with and (suspected) exposure to COVID-19; Z68.42 Body mass index [BMI] 45.0-49.9, adult; Z79.899 Other long term (current) drug therapy
CPT/HCPCS: 36415; 80048; 81025; 85014; 85018; 85025; 85610; 85730; 86850; 86900; 86901; 87635; 88307; 88342; C9088; J0131; J0690; J1100; J1170; J2250; J2370; J2405; J2795; J3010

== ENCOUNTER → 2022-10-08 08:36 | Outpatient (BNVA) | payer OTHER, SELFPAY | PROVIDERS: Visit Provider Physician Assistant | DX: E66.9 Obesity, unspecified (principal); Z98.84 Bariatric surgery status | CPT/HCPCS: 99212 ==

== ENCOUNTER → 2022-10-23 10:00 | Outpatient (BNVA) | payer OTHER, SELFPAY | PROVIDERS: Visit Provider Counselor Mental Health | DX: F43.20 Adjustment disorder, unspecified (principal); E66.01 Morbid (severe) obesity due to excess calories; Z98.84 Bariatric surgery status | CPT/HCPCS: 90832 ==

== ENCOUNTER → 2022-11-27 09:26 | Outpatient (BNVA) | payer OTHER, SELFPAY | PROVIDERS: Visit Provider Physician Assistant | DX: E66.9 Obesity, unspecified (principal); Z68.37 Body mass index [BMI] 37.0-37.9, adult; Z90.3 Acquired absence of stomach [part of] | CPT/HCPCS: 99212 ==

== ENCOUNTER 2023-02-27 08:24 | Outpatient (REF) | payer OTHER, SELFPAY ==
[2023-02-27 09:22] LABS: MANUAL DIFF FLAG NO
[2023-02-27 10:04] LABS: Basophils Absolute Auto 0.1 X10*3/uL (0.0-0.2); Basophils Percent Auto 0.7 % (0-2); Eosinophils Absolute Auto 0.2 X10*3/uL (0.0-0.4); Eosinophils Percent Auto 2.2 % (0-4); Hematocrit 40.5 % (37.0-47.0); Hemoglobin 12.8 g/dl (12.0-16.0); Imm Gran Abs Auto 0.02 X10*3/uL (0.00-0.03); Imm Gran Pct Auto 0.2 % (0.0-0.4); Lymphocytes Absolute Auto 2.1 X10*3/uL (1.2-4.9); Lymphocytes Percent Auto 26.2 % (20-40); Mean Corpuscular HGB Conc 31.6 g/dl (31.0-35.0); Mean Corpuscular Hemoglobin 26.6 pg (27.0-33.0); Mean Platelet Volume 10.3 fL (9.4-12.3); Monocytes Absolute Auto 0.7 X10*3/uL (0.1-1.2); Monocytes Percent Auto 9.1 % (2-11); Neutrophils Percent Auto 61.6 % (45-73); Platelet Count 300 X10*3/uL (160-400); Red Blood Count 4.82 X10*6/uL (4.20-5.50); Red Cell Distribution Width 14.1 % (11.0-16.0); White Blood Count 8.1 X10*3/uL (4.8-10.8)
[2023-02-27 10:10] LABS: Estimated Average Glucose 88 mg/dL; Hemoglobin A1c % 4.7 %
[2023-02-27 10:25] LABS: Alanine Aminotransferase 12 U/L (0-31); Albumin Level 4.1 g/dL (3.5-5.0); Alkaline Phosphatase 84 U/L (39-117); Anion Gap 10 (12-20); Aspartate Amino Transferase 11 U/L (5-31); Bilirubin Total 0.5 mg/dL (0.0-1.0); Blood Urea Nitrogen 8 mg/dL (9-16); Calcium 9.8 mg/dL (8.4-10.2); Carbon Dioxide 27 mmol/L (22-29); Chloride 107 mmol/L (96-108); Cholesterol 159 mg/dL; Estimated Glomerular Filt Rate > 60; Glucose Random 69 mg/dL (60-115); HDL Cholesterol 46 mg/dL; Iron 61 mcg/dL (30-160); LDL Cholesterol Calculated 98 mg/dl; Percent Iron Saturation 22 % (15-50); Potassium 4.2 mmol/L (3.3-5.1); Sodium 140 mmol/L (135-145); Total Iron Binding Capacity 276 mcg/dL (228-428); Total Protein 7.2 g/dL (6.5-8.0); Triglycerides 77 mg/dL; Unsaturated Iron Binding 215 ug/dL
[2023-02-27 11:05] LABS: Ferritin 59 ng/mL (10-122); Folate 16.4 ng/mL (> or = 4.0); TSH reflex Free T4 1.54 uIU/mL (0.32-4.0); Vitamin B12 317 pg/mL (200-900); Vitamin D 25-OH Total 21.5 ng/mL (>30)
[2023-02-27 11:45] LABS: Insulin 16 uU/mL (2-29)
[2023-02-28 22:24] LABS: Calcium (PTHI) 9.8 mg/dL (8.6-10.2); PTHI 44 pg/mL (16-77)
[2023-03-03 15:24] LABS: Zinc 82 mcg/dL (60-130)
[2023-03-05 17:48] LABS: Vitamin A 35 mcg/dL (38-98)
[2023-03-06 15:23] LABS: Vitamin B1 14 nmol/L (8-30)
== END 2023-02-27 08:25 | disposition home or self-care (01) ==
LOC: HO.LAB 08:24
PROVIDERS: Visit Provider Physician Assistant
DX: Z98.84 Bariatric surgery status (principal); E66.9 Obesity, unspecified
CPT/HCPCS: 36415; 80053; 80061; 82306; 82607; 82728; 82746; 83036; 83525; 83540; 83970; 84425; 84443; 84590; 84630; 85025; 86140; 99212

== ENCOUNTER 2023-08-28 09:15 | Outpatient (REF) | payer OTHER, SELFPAY ==
[2023-08-28 10:34] LABS: MANUAL DIFF FLAG NO
[2023-08-28 10:48] LABS: Basophils Absolute Auto 0.1 X10*3/uL (0.0-0.2); Basophils Percent Auto 0.8 % (0-2); Eosinophils Absolute Auto 0.1 X10*3/uL (0.0-0.4); Eosinophils Percent Auto 1.4 % (0-4); Hematocrit 38.4 % (37.0-47.0); Hemoglobin 12.3 g/dl (12.0-16.0); Imm Gran Abs Auto 0.03 X10*3/uL (0.00-0.03); Imm Gran Pct Auto 0.4 % (0.0-0.4); Lymphocytes Absolute Auto 2.2 X10*3/uL (1.2-4.9); Lymphocytes Percent Auto 30.2 % (20-40); Mean Corpuscular Hemoglobin 27.3 pg (27.0-33.0); Mean Corpuscular Volume 85.3 fL (80.0-98.0); Mean Platelet Volume 9.7 fL (9.4-12.3); Monocytes Absolute Auto 0.6 X10*3/uL (0.1-1.2); Monocytes Percent Auto 7.5 % (2-11); Neutrophils Absolute Auto 4.4 x10*3/uL (2.0-8.3); Neutrophils Percent Auto 59.7 % (45-73); Platelet Count 284 X10*3/uL (160-400); Red Cell Distribution Width 13.4 % (11.0-16.0); White Blood Count 7.3 X10*3/uL (4.8-10.8)
[2023-08-28 10:49] LABS: Estimated Average Glucose 94 mg/dL; Hemoglobin A1c % 4.9 % (<6.0)
[2023-08-28 11:32] LABS: Alanine Aminotransferase 7 U/L (0-31); Alkaline Phosphatase 77 U/L (39-117); Anion Gap 13 (12-20); Aspartate Amino Transferase 11 U/L (5-31); Bilirubin Total 0.5 mg/dL (0.0-1.0); Blood Urea Nitrogen 11 mg/dL (9-16); C Reactive Protein 0.94 mg/dL (< or = 0.50); Calcium 9.4 mg/dL (8.4-10.2); Carbon Dioxide 25 mmol/L (22-29); Chloride 107 mmol/L (96-108); Cholesterol 169 mg/dL (<200); Estimated Glomerular Filt Rate > 60; Glucose Random 81 mg/dL (60-115); HDL Cholesterol 53 mg/dL (>40); Iron 91 mcg/dL (30-160); LDL Cholesterol Calculated 103 mg/dL (<100); Percent Iron Saturation 33 % (15-50); Sodium 141 mmol/L (135-145); Total Iron Binding Capacity 277 mcg/dL (228-428); Total Protein 7.4 g/dL (6.5-8.0); Triglycerides 69 mg/dL (<150); Unsaturated Iron Binding 186 ug/dL
[2023-08-28 11:38] LABS: Ferritin 68 ng/mL (10-122); Insulin 6 uU/mL (2-29); TSH reflex Free T4 1.78 uIU/mL (0.32-4.0); Vitamin D 25-OH Total 16.9 ng/mL (>30)
[2023-08-28 11:47] LABS: Folate 13.5 ng/mL (> or = 4.0); Vitamin B12 351 pg/mL (200-900)
[2023-08-31 02:09] LABS: Zinc 95 mcg/dL (60-130)
[2023-09-03 00:49] LABS: Vitamin A 32 mcg/dL (38-98)
[2023-09-03 18:35] LABS: Vitamin B1 14 nmol/L (8-30)
== END 2023-08-28 09:16 | disposition home or self-care (01) ==
LOC: HO.LAB 09:15
PROVIDERS: PCP Physician Assistant; Visit Provider Physician Assistant
DX: E66.9 Obesity, unspecified (principal); K75.81 Nonalcoholic steatohepatitis (NASH); Z71.3 Dietary counseling and surveillance; Z98.84 Bariatric surgery status; Z68.35 Body mass index [BMI] 35.0-35.9, adult
CPT/HCPCS: 36415; 80053; 80061; 82306; 82607; 82728; 82746; 83036; 83525; 83540; 84425; 84443; 84590; 84630; 85025; 86140; 99212

== ENCOUNTER 2023-08-28 09:15 | Outpatient (AMB) | payer OTHER, SELFPAY ==
--- NOTE | 2023-08-28 09:32 | MHC.OFFVISWM ---
Intake VS Expanded 08/28/23 09:38 BP 100/56 L Blood Pressure Location Rt brachial Blood Pressure Position Sitting Pulse 80 Pulse Source Pulse Oximeter Temp 98.0 F Temperature Source Temporal Artery Scan Pulse Oximetry 80 L Oxygen Delivery Method Room Air Height 5 ft 3 in Weight 200 lb 6.4 oz BMI 35.5 Body Fat % 40.4 Body Fat Mass 81.0 Fat Free Mass 119.2 Visceral Fat Rating 8.0 Body Water % 43.0 Body Water Mass 86.0 Muscle Mass/Score 113.4 Basal Metabolic Rate/Score 1,695 Intake Visit Reasons: (OV) PO LSG 07/04/22 Allergies No Known Allergies [No Known Allergies*] Allergy (Verified 08/28/23 09:34) Medication List - Last Reconciled 08/28/23 by Anisha Maya PA-C clotrimazole 1% 1 appl topical BID multivitamin 1 tab PO DAILY HPI HPI Comments History of Present Illness Details Pt is now 14 months s/p LSG, last appt in February 2023, same weight of 200 lbs. no n/v, abd pain or reflux. Feels stuck with her weight loss, goal is to reach 170 lbs. Tired often, single mother with a 3 year old. Sole Buffer weigh tof 299. Meal plan: does not tolerate shakes anymore water or Crystal light 11 am - 1 boiled egg may have a 5 gram bar at 1pm - a few days a week 3pm - if no bar, 3 oz meat and 1 oz vegetables 6:30 - 3 oz meat and 1 oz vegetables ETOh - very ocassionally Exercise - MM 50 minutes video2 days, treadmill for 1 hour can't determine calories burned onher machine. Post op complications: nonoe PRABHA: never DM never HTN: never Hyperlipidemia: never GERD: 0 Satisfaction with present condition - satisfied [facility] Medical History (Updated 02/27/23 @ 12:10 by Anisha Maya PA-C) Adjustment disorder, unspecified Diverticulosis Morbid obesity Nondisplaced fracture of fifth metacarpal bone with routine healing Nondisplaced fracture of fifth metacarpal bone Obese No known health problems Surgical History Hx of colonoscopy Family History Mother No problems noted. Father Hypercholesteremia Social History (Updated 08/28/23 @ 09:36 by Juana Del Rio CMA) Are you a primary care management associate to a significant other at home: Yes (2 year old son, patient's father and child's father will assist post-op) Do you presently have visiting nurse or other home services: No Alcohol intake: current Alcohol intake frequency: holidays/special occasions only Patient Tobacco Use Status: Never used Tobacco Current occupational status: employed Current occupation: lt handed/ [employer] Physical Exam Vital Signs: Last Vital Signs Temp 98.0 F 08/28/23 09:38 Pulse 80 08/28/23 09:38 BP 100/56 L 08/28/23 09:38 Pulse Ox 80 L 08/28/23 09:38 Oxygen Delivery Method Room Air 08/28/23 09:38 BMI result Body Mass Index 35.5 Const General: cooperative, no acute distress and well developed Nutritional Appearance: obese Orientation/consciousness: patient oriented x3 HEENT Head: Yes normal to inspection Neck Neck: Yes normal visual inspection Thyroid: Thyroid normal Resp Effort & Inspection: normal respiratory effort Auscultation: clear to auscultation bilaterally Cardio Rate: regular rate Rhythm: regular rhythm Heart sounds: S1 normal heart sound present, S2 normal heart sound present and no murmurs GI Inspection: No distended and Yes obesity Palpation (GI): Soft to palpation, nontender and no guarding Skin General skin exam: no rashes or lesions noted and other (warm and dry) Wounds: no wounds Hair: normal Neuro General: patient oriented x3 Extrem General: Yes no pedal edema and Yes no calf tenderness Psych Attitude: cooperative Thought process: Normal thought process present Thought content: Normal thought content present Insight: Good insight present (Psych) Judgement: Good judgement present (Psych) Assessment & Plan Assessment & Plan (1) Obese: Code(s): E66.9 - Obesity, unspecified Plan: Breakfast - 15 g bar lunch and dinner 3 oz poetien ans 2 oz vegetable - rawo r cooked 30 grams unflavored protein water weith 1/2 cup fresh or frozen berries Exercise - must increaase exercise to 5 d/ week - Labs today. 6 weeks next appt. (2) S/P laparoscopic sleeve gastrectomy: Code(s): Z98.84 - Bariatric surgery status Plan see above Orders: Orders Hemoglobin A1c Today E66.9 - Obesity, unspecified, K75.81 - Nonalcoholic steatohepatitis (LIND), Z98.84 - Bariatric surgery status IRON PROFILE Today E66.9 - Obesity, unspecified, K75.81 - Nonalcoholic steatohepatitis (LIND), Z98.84 - Bariatric surgery status Comprehensive Met. Panel Today E66.9 - Obesity, unspecified, K75.81 - Nonalcoholic steatohepatitis (LIND), Z98.84 - Bariatric surgery status Vitamin B12 and Folate Today E66.9 - Obesity, unspecified, K75.81 - Nonalcoholic steatohepatitis (LIND), Z98.84 - Bariatric surgery status Zinc Today E66.9 - Obesity, unspecified, K75.81 - Nonalcoholic steatohepatitis (LIND), Z98.84 - Bariatric surgery status C Reactive Protein Today E66.9 - Obesity, unspecified, K75.81 - Nonalcoholic steatohepatitis (LIND), Z98.84 - Bariatric surgery status Vitamin B1 Today E66.9 - Obesity, unspecified, K75.81 - Nonalcoholic steatohepatitis (LIND), Z98.84 - Bariatric surgery status Vitamin A Today E66.9 - Obesity, unspecified, K75.81 - Nonalcoholic steatohepatitis (LIND), Z98.84 - Bariatric surgery status Ferritin Today E66.9 - Obesity, unspecified, K75.81 - Nonalcoholic steatohepatitis (LIND), Z98.84 - Bariatric surgery status Vitamin D 25-OH Total Today E66.9 - Obesity, unspecified, K75.81 - Nonalcoholic steatohepatitis (LIND), Z98.84 - Bariatric surgery status Insulin Today E66.9 - Obesity, unspecified, K75.81 - Nonalcoholic steatohepatitis (LIND), Z98.84 - Bariatric surgery status Complete Blood Count Auto Diff Today E66.9 - Obesity, unspecified, K75.81 - Nonalcoholic steatohepatitis (LIND), Z98.84 - Bariatric surgery status Lipid Panel Today E66.9 - Obesity, unspecified, K75.81 - Nonalcoholic steatohepatitis (LIND), Z98.84 - Bariatric surgery status TSH reflex Free T4 Today E66.9 - Obesity, unspecified, K75.81 - Nonalcoholic steatohepatitis (LIND), Z98.84 - Bariatric surgery status Coding Level of Care Code Est Pt Level 4 (64944) Diagnoses Obese E66.9 S/P laparoscopic sleeve gastrectomy Z98.84
[2023-08-28 09:38] VITALS: BP 100/56; PULSE 80; TEMP 36.7; O2SAT 80; BMI 35.5
== END 2023-08-28 10:03 | disposition home or self-care (01) ==
PROVIDERS: Visit Provider Physician Assistant
DX: E66.9 Obesity, unspecified (principal); Z68.35 Body mass index [BMI] 35.0-35.9, adult; Z90.3 Acquired absence of stomach [part of]; Z98.84 Bariatric surgery status
CPT/HCPCS: 99214

== ENCOUNTER 2023-11-02 06:35 | Emergency (ER) | payer OTHER, SELFPAY ==
[2023-11-02 06:41] VITALS: BP 114/68; PULSE 98; RESP 14; TEMP 37.2; O2SAT 99; BMI 37.5
[2023-11-02 07:14] LABS: IDNOW Serial# 08D9AD1C; Strep A Nucleic Acid Negative (Negative)
--- NOTE | 2023-11-02 07:25 | ED.GENADULT ---
HPI - General Adult General Chief complaint: Upper Respiratory Symptoms Stated complaint: Sore throat-unable to talk Time Seen by Provider: 11/02/23 07:25 Source: patient Mode of arrival: ambulatory Limitations: no limitations History of Present Illness HPI narrative: Patient is a 27-year-old female presenting to the emergency department with complaint of sore throat and hoarse voice since yesterday which worsened this morning. She reports nonproductive cough and generalized fatigue, body aches, nasal congestion. She denies fevers, ear pain. Has not taken any [id number] medications for her symptoms. Son recently sick with similar symptoms. MD complaint: sore throat Onset (ago): day(s) Associated symptoms: cough Treatments prior to arrival: none Related Data Previous Rx's Medication Instructions Recorded clotrimazole 1 % topical cream 1 appl topical BID #90 grams 04/18/22 multivitamin 1 tab PO DAILY #30 tabs 07/17/22 cholecalciferol (vitamin D3) 50 50 mcg PO DAILY #90 caps 08/28/23 mcg (2,000 unit) capsule vitamin A palmitate 3,000 mcg 3,000 mcg PO DAILY #30 caps 09/03/23 (10,000 unit) capsule Allergies Allergy/AdvReac Type Severity Reaction Status Date / Time No Known Allergies Allergy Verified 11/02/23 06:41 [No Known Allergies*] Review of Systems Review of Systems: As per HPI. Yes all other systems are reviewed and are negative Constitutional: Constitutional: Reports as per HPI [facility] Past Medical History Medical History (Updated 11/02/23 @ 07:50 by Carmella Koroma NP) Adjustment disorder, unspecified Diverticulosis Morbid obesity Nondisplaced fracture of fifth metacarpal bone with routine healing Nondisplaced fracture of fifth metacarpal bone Obese No known health problems Surgical History Hx of colonoscopy Family History Family History Mother No problems noted. Father Hypercholesteremia Social History Social History (Updated 08/28/23 @ 09:36 by Juana Del Rio CMA) Are you a primary pharmacist critical care to a significant other at home: Yes (2 year old son, patient's father and child's father will assist post-op) Do you presently have visiting nurse or other home services: No Alcohol intake: current Alcohol intake frequency: holidays/special occasions only Patient Tobacco Use Status: Never used Tobacco Advance Directives: No Current occupational status: employed Current occupation: lt handed/ [employer] Physical Exam ED Vital Signs: Vital Signs - 24 hr 11/02/23 06:41 Temperature 98.9 F Pulse Rate 98 Respiratory Rate 14 Blood Pressure 114/68 Pulse Oximetry 99 Oxygen Delivery Method Room Air BMI result Body Mass Index 37.5 Vital signs have been reviewed and appear to be correct. Blood pressure normal. Heart rate normal. Respiratory rate normal. Temperature normal. Oxygen saturation normal. Const General: cooperative, healthy appearing and no acute distress Orientation/consciousness: oriented to person, oriented to place, oriented to time and patient oriented x3 Limitations: no limitations HENMT Head: Yes normocephalic and Yes atraumatic Ears: external ears normal, TM's normal bilaterally and EAC's normal General nose exam: Normal external nose present, Normal nasal mucous membranes and turbinates present and Normal septum present Face and sinus: Yes face symmetric Mouth: oropharynx normal, moist mucous membranes and no trismus Throat: Yes posterior oropharynx normal, Yes tonsils normal, Yes uvula midline and No uvular edema Eyes Pupils: Equal, round and reactive pupils present Neck Neck: Yes normal visual inspection and Yes supple Lymphatic: no lymphadenopathy noted Resp Effort & Inspection: normal respiratory effort and able to speak in complete sentences Auscultation: clear to auscultation bilaterally Cardio Rate: regular rate Rhythm: regular rhythm Heart sounds: S1 normal heart sound present and S2 normal heart sound present GI Palpation (GI): Soft to palpation and nontender Auscultation: normoactive bowel sounds General: Yes no CVA tenderness Back/Spine/Pelvis Back: no CVA tenderness Skin General skin exam: elasticity normal and turgor normal Neuro General: oriented to person, oriented to place, oriented to time, patient oriented x3, moves all extremities, no focal motor deficits and CN's II-XI intact bilaterally Cranial nerves: Yes Equal, round and reactive pupils present Cognition (Neuro): normal cognition Extrem General: Yes full ROM, Yes no pedal edema and Yes no calf tenderness Psych Mental Status: mental status grossly normal Affect: normal affect Thought process: Normal thought process present Medical Decision Making Medical Decision Making MDM Narrative: Patient is a 27-year-old female presenting to the emergency department with complaint of sore throat and hoarse voice since yesterday which worsened this morning. On exam patient is awake, A+Ox3, VS WNL, afebrile, normal neurological exam without focal deficits, physical exam findings as above. Given reported symptoms and physical exam findings, initial differential includes viral illness, covid, flu, strep pharyngitis. Do not suspect peritonsillar abscess. Swabs for flu, Covid and strep negative, patient updated on results. Treated with one-jarrell dose of dexamethasone in the ED, advised to alternate Tylenol and ibuprofen, vocal rest. Return precautions discussed. Patient verbalized understanding of and agreement with plan. Differential Diagnosis Differential Diagnoses: The differential diagnosis associated with the presentation includes As per [facility]. Lab Data [facility] Lab Attestation statement: I reviewed the patient's lab results. As per [facility] Labs: Lab Results 11/02/23 11/02/23 Range/Units 06:50 07:04 COVID-19 (ZOIE) Negative (Negative) COVID-19 Clin Com See Note Influenza Type A (ROBB) Negative (Negative) Influenza Type B (ROBB) Negative (Negative) Influenza A & B Note See Note S. pyogenes GrpA ROBB Negative (Negative) External Record Review External record reviewed: Inpatient record, Office record and Outpatient record Prescription Management I considered prescription management with: Other Discharge Plan Discharge Clinical Impression: Viral infection Patient Disposition: Home, Self-Care Instructions: Viral Syndrome (ED) Additional Instructions: You were evaluated in the emergency department today for sore throat and cough. Your Covid, flu, and strep tests were all negative. Your symptoms are likely related to a viral illness which will resolve on its own with time and rest. You were given a one-time dose of steroids in the emergency department to decrease inflammation. You should ensure adequate fluid intake, and can use Tylenol 650 mg or ibuprofen 600 mg every 6 hours as needed for fever or discomfort. Please follow-up with your primary care provider this week. Return to the emergency department if you develop chest pain, worsening shortness of breath, difficulty swallowing, fever 100.4? F or greater or any other concerning symptoms. Prescriptions: No Action multivitamin Tablet 1 tab PO DAILY Qty: 30 11RF cholecalciferol (vitamin D3) 50 mcg (2,000 unit) capsule 50 mcg PO DAILY Qty: 90 3RF vitamin A palmitate 3,000 mcg (10,000 unit) capsule 3,000 mcg PO DAILY Qty: 30 11RF clotrimazole 1 % cream 1 appl topical BID Qty: 90 2RF Stand Alone Forms: Work/School Release
[2023-11-02 07:30] LABS: COVID-19 Test Negative (Negative); IDNOW Serial# 152EDE1D; IDNOW Serial# 9DB6401D; Influenza A Negative (Negative); Influenza B2 Negative (Negative)
[2023-11-02] MEDS: dexAMETHasone 2 MG TABLET 10 MG PO (08:01)
== END 2023-11-02 08:11 | disposition home or self-care (01) ==
PROVIDERS: Emergency Provider Emergency Medicine; PCP Physician Assistant
DX: B34.9 Viral infection, unspecified (principal); J02.9 Acute pharyngitis, unspecified; Z11.52 Encounter for screening for COVID-19
CPT/HCPCS: 87502; 87635; 87651; 99282; 99283; J8540

== ENCOUNTER 2024-05-29 07:42 | Emergency (ER) | payer OTHER, SELFPAY ==
[2024-05-29 07:50] VITALS: BP 100/63; PULSE 73; RESP 18; TEMP 36.9; O2SAT 98; BMI 40.0
--- NOTE | 2024-05-29 09:26 | ED_ITS ---
HPI - General Adult General Chief complaint: Extremity Injury, Lower Stated complaint: L Leg Pain No Injury Time Seen by Provider: 05/29/24 09:03 Source: patient Mode of arrival: ambulatory Limitations: no limitations History of Present Illness ED Provider: EUGENIE RAUSCH PA-C HPI narrative: 28-year-old female with no significant past medical history presents to the ED today for evaluation of atraumatic left foot pain x1 week. Reports the pain in the bottom of her left foot began after standing for prolonged periods of time at her job. Pain is worse when taking the 1st few steps out of bed in the morning. She has not been taking anything for pain at home. Denies injury or trauma. Denies recent travel or long car rides. Denies radiation of pain. Fever, chills, chest pain, shortness of breath, hemoptysis, calf pain/redness. Related Data Previous Rx's ?Medication ?Instructions ?Recorded clotrimazole 1 % topical cream 1 appl topical BID #90 grams 04/18/22 multivitamin 1 tab PO DAILY #30 tabs 07/17/22 cholecalciferol (vitamin D3) 50 50 mcg PO DAILY #90 caps 08/28/23 mcg (2,000 unit) capsule vitamin A palmitate 3,000 mcg 3,000 mcg PO DAILY #30 caps 09/03/23 (10,000 unit) capsule naproxen 500 mg tablet 500 mg PO Q8-12H PRN pain (scale 05/29/24 score 4-6) #20 tabs Allergies Allergy/AdvReac Type Severity Reaction Status Date / Time No Known Allergies Allergy Verified 05/29/24 07:52 [No Known Allergies*] Review of Systems Review of Systems: Constitutional: No fever, chills, fatigue, night sweats, weight changes ENT/Mouth: No ear pain, hearing loss, nasal congestion, sinus pain, rhinorrhea, sore throat Eyes: No eye pain, swelling, redness, vision changes, discharge Cardio: No chest pain, palpitations, MIRELES, orthopnea, peripheral edema Pulm: No SOB, cough, sputum, wheezing, dyspnea, hemoptysis GI: No nausea, vomiting, hematemesis, abdominal pain, diarrhea, constipation, hematochezia, melena : No irregular bleeding, dysuria, frequency, urgency, hesitancy, hematuria, flank pain, urinary flow changes, urinary incontinence or retention MSK: No back pain, neck pain, joint pain, myalgias, +left foot pain Skin: No lesions, rashes Neuro: No weakness, numbness, paresthesias, LOC, dizziness, headache Psych: No anxiety/panic, depression, SI/HI, AH/VH All other systems reviewed and are negative. [facility] Past Medical History Attestation statement: The following information was validated with the patient. Source: old records reviewed and nursing notes reviewed Medical History Adjustment disorder, unspecified Diverticulosis Morbid obesity Nondisplaced fracture of fifth metacarpal bone with routine healing Nondisplaced fracture of fifth metacarpal bone Obese No known health problems Surgical History Hx of colonoscopy Family History Family History Mother No problems noted. 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 not hypoxic, not tachycardic. General: Well appearing, in no acute distress. Skin: Warm, dry, intact. No rashes or lesions. Head: Normocephalic, atraumatic..? Cardiac: Chest wall symmetric. RRR. No MRG. No JVD. Lungs: Normal respiratory effort without accessory muscle use. CTA bilaterally. No rales, rhonchi, or wheezes.? Abdomen: Soft, non-tender, non-distended. No rebound tenderness or guarding. Positive BS x4. Ext: Upper and lower extremities atraumatic, without deformity, swelling or erythema. Full ROM throughout. Capillary refill <2 seconds in all extremities. Pulses 2+ equal and bilateral. +ttp along left plantar fascia Neuro: AOx3. Normal speech. Strength 5/5 intact throughout. Sensation intact to light touch. NV intact distally. Reflexes 2+ bilaterally. Ambulating with steady gait. Psych: Appropriate mood and affect. Responds appropriately to questions. Medical Decision Making Medical Decision Making MDM Narrative: 28-year-old female with no significant past medical history presents to the ED today for evaluation of atraumatic left foot pain x1 week. Vital signs stable. Not tachycardic. Not hypoxic. She is well-appearing and in no acute distress. On exam, left lower extremity without overlying skin changes or deformity. 2+ PT/DP pulse intact. Slightly tender to palpation of the plantar fascia. No palpable deformities. No fluctuance, warmth. No calf tenderness bilaterally. Ambulating with steady gait. Differential diagnosis includes plantar fasciitis. Unlikely DVT, neurovascular compromise, compartment syndrome, threat to limb, fracture, dislocation, osteomyelitis, contusion. Plan for disposition. Differential Diagnosis Differential Diagnoses: The differential diagnosis associated with the presentation includes As above Admission/Observation Not indicated Tests considered The following testing was considered but not selected: I considered obtaining imaging however no injury or trauma to the area, not indicated at this time. Prescription Management I considered prescription management with: Pain Medication (Naproxen) Social Determinants Patient?s care significantly limited by Social Determinants of Health including: Other Social Determinant of Health Discharge Plan Discharge Clinical Impression: Plantar fasciitis Patient Disposition: Home, Self-Care Instructions: Plantar Fasciitis (ED), Plantar Fasciitis Exercises (ED) Additional Instructions: Your physical exam is consistent with plantar fasciitis. Naproxen as an anti-inflammatory pain medication that has been sent to your pharmacy. Take this as needed for pain/discomfort. Do not take this with other NSAIDs such as Motrin as this may increase risk of GI bleeding. As discussed, it was important to do exercises such as rolling your foot on a frozen water bottle or even a tennis ball or golf ball. I have also attached exercises to this paper that you can do at home. If symptoms persist, please follow up with your PCP as you may need to do phy sical therapy. Return with new or worsening symptoms. In the case of an emergency call 911. Prescriptions: New naproxen 500 mg tablet 500 mg PO Q8-12H PRN (Reason: pain (scale score 4-6)) Qty: 20 0RF No Action multivitamin Tablet 1 tab PO DAILY Qty: 30 11RF cholecalciferol (vitamin D3) 50 mcg (2,000 unit) capsule 50 mcg PO DAILY Qty: 90 3RF vitamin A palmitate 3,000 mcg (10,000 unit) capsule 3,000 mcg PO DAILY Qty: 30 11RF clotrimazole 1 % cream 1 appl topical BID Qty: 90 2RF Referrals: Garrett Guerra MD [Primary Care Provider] - Stand Alone Forms: Work/School Release Discharge Date/Time: 05/29/24 09:31 Print Language: Spanish
[2024-05-29 09:31] VITALS: BP 100/63; PULSE 73; RESP 18; TEMP 36.9; O2SAT 98
== END 2024-05-29 09:31 | disposition home or self-care (01) ==
PROVIDERS: Emergency Provider Emergency Medicine Emergency Medical Services; PCP Internal Medicine
DX: M72.2 Plantar fascial fibromatosis (principal); M79.672 Pain in left foot
CPT/HCPCS: 99282; 99283